=== PATIENT | male | born 1955 | race Caucasian/White ===

== ENCOUNTER 2017-12-29 08:30 | Inpatient (IN) ==
[~2017-12-29 08:30] MED LIST: Bupivacaine/Epinephrine PF Inj 0.5% 30 ML Vial ONE; Gelatin Size 100 Topical Foam ONE; Thrombin Topical Soln 5,000 UNIT Vial TOPICAL ONE; ceFAZolin 2 GM Premix Inj 2 GM/50 ML PIGGYBACK IV.SIG ONE
[2017-12-29] MEDS ORDERED: HYDROmorphone PF Inj 2 MG/ML Vial ONE ×2 (10:50→19:24)
[2017-12-29] MEDS ORDERED: fentaNYL Citrate Inj 250 MCG/5 ML Ampul ONE (10:50)
[2017-12-29] MEDS ORDERED: Artificial Tears Opth Oint 3.5 GM Tube ONE (10:50)
[2017-12-29] MEDS ORDERED: Dexmedetomidine Inj 200 MCG/2 ML Vial ONE ×2 (10:50→18:25)
[2017-12-29] MEDS ORDERED: Sodium Chlor 0.9% Inj 250 ML ONE (11:10)
[2017-12-29] MEDS ORDERED: Sugammadex Inj 200 MG/2 ML Vial IV.PUSH ONE (11:15)
[2017-12-29] MEDS ORDERED: Metoprolol Tartrate 25 MG Tablet PO ONE (11:31)
[2017-12-29] MEDS ORDERED: Chlorhexidine Gluconate 2% 1 Pack (2 Cloths) TOPICAL ONE (11:31)
[2017-12-29] MEDS ORDERED: Sodium Chlor 0.9% Inj 500 ML IV.SIG SCH (12:00)
[2017-12-29] MEDS ORDERED: Vancomycin Inj 1,000 MG in Sodium Chlor 0.9% Inj 250 ML IV.SIG SCH (12:00)
[2017-12-29] MEDS ORDERED: ASPIRIN ACETAMINOPHEN CAFFEINE PO PRN (14:14)
[2017-12-29] MEDS ORDERED: OXYCODONE 15 MG PO PRN (14:14)
[2017-12-29] MEDS ORDERED: Naloxone Inj 0.4 MG/ML Vial IV.PUSH PRN (14:15)
[2017-12-29] MEDS ORDERED: Dextrose 50% in Water 50 ML Vial IV.PUSH PRN ×3 (14:15→21:10)
[2017-12-29 15:34] LABS: ABG Base Excess 1.2 mmol/L (-2-2); ABG PCO2 35 mmHg (38-42); ABG PO2 186 mmHG (61-120)
[2017-12-29 15:35] LABS: Hematocrit 36.4 % (39.0-51.0); Hemoglobin 12.6 gm/dL (13.0-17.0)
[2017-12-29] MEDS ORDERED: ceFAZolin 2 GM Premix Inj 2 GM/50 ML PIGGYBACK IV.SIG ONE (15:57)
[2017-12-29] MEDS ORDERED: Propofol Inj 500 MG/50 ML Vial ONE (16:35)
[2017-12-29 17:24] LABS: ABG Base Excess 0.5 mmol/L (-2-2); ABG PCO2 36 mmHg (38-42); ABG PO2 194 mmHG (61-120)
[2017-12-29 17:46] LABS: Hematocrit 31.7 % (39.0-51.0); Hemoglobin 11.7 gm/dL (13.0-17.0)
--- NOTE | 2017-12-29 20:30 | P.OP ---
Preoperative Diagnosis: Lumbar degenerative disk disease with secondary spinal stenosis Postoperative Diagnosis: Lumbar degenerative disk disease with secondary spinal stenosis Date of procedure: 12/29/17 Procedure: L3-4, L4-L5, L5-S1 left decompressive laminectomy, interbody arthrodhesis using PEEK cage and autologous bone graft, L3-4, L4-L5, L5-S1 instrumental fixation using transpedicular screws and rods, L3-4, L4-L5, L5-S1 posterolateral fusion using autologous bone graft and demineralized bone matrix. Microsurgical dissection Anesthesia: ALYSSA Surgeon: Choco Hawley MD Box Sorter: Nan De Pathology: none sent Operation and Findings: INDICATIONS FOR THE SURGICAL PROCEDURE Mr Padilla is a 62 year-old male who presented with intractable mechanical back pain and papi evidence of L4, L5, and S1 lower extremity radiculopathy. He had multlevel severe degenerative disk disease with secondary spinal stenosis, which correlated with his poliradiculopathy. He has failed maximum nonsurgical management including multiple modalities of conservative treatment as well as pain management interventions by an interventional pain specialist. A surgical decompression and arthrodhesis were indicated as a last resort. The wdom-he-xzki details of the procedure, indications, alternatives, risks and potential complications were fully discussed with the patient. The patient fully understood. All the questions were answered. No guarantees were given. He voiced requesting the procedure and provided informed consents. He was offered the alternative of delaying the procedure and continuing with nonsurgical management. DETAILS OF THE SURGICAL PROCEDURE Prior to the procedure, the procedure, risks, and potential complications revisited with the patient. Placement of electrodes for intraoperative neurophysiological monitoring was completed. The patient was taken to the operative room, and following induction of general anesthesia, endotracheal intubation was performed. A Sheehan catheter, bilateral SRI hose and sequential compression devices were placed and kept throughout the procedure. The patient was positioned prone, over a Oskar table over a bolsters. All pressure in the preoperative surgical holding room points were carefully padded with eggcrate and gel mattress. The eyes were tapped shut after ointment was applied by the anesthesiologist to prevent corneal abrasion. A Ale hugger was placed over the expossed lower body to maintain control of the core body temperature. The electrophysiological team placed the needles and electrodes in their proper location and baseline SSEP's and motor evoked potentials were registered. The entrance to each pedicles was marked using a C arm. The lumbar region was prepped and draped in the usual sterile fashion. The surgical procedure was performed in several steps as follow: SURGICAL APPROACH Once the patient was positioned, a localizing cross-table lateral and AP x-ray was performed with a C-arm. Two paramedian small incisions were outlined on the skin approximately 3cm from the midline. The skin incisions were made with a # 10 blade. Small bleeders were controlled with the cautery. The dissection was then carried out into deeper planes and through the thoracolumbar fascia with a Bovie. The intermuscular septum was identified and the muscles were blunted dissected along the septum. The facets and transverse process of L3-4, L4,5, and L5-S1 were exposed and the proper anatomical landmarks were identidied. A microsurgical self-retaining retractor was placed on the incision, and a localizing lateralizing cross-table x-ray was performed with an instrument underneath a lamina of the lumbar spine. INSTRUMENTAL FIXATION At this point in the procedure, placement of bilateral transpedicular screws was necessary for stabilization of the spine. Initially, the entry point for the screw was selected anatomically at the junction of the facet, with the transverse process, and the pars interarticularis at L3-4, L4,5, and L5-S1. This was started with a Giamshetti needle, followed by the use of K wire. A tap was used to create the threads for the screws. Finally bilateral transpedicular screws were carefully placed bilaterally at L3, L4, L5. and S1 under fluoroscopic visualization. An appropriate purchase was achieved with all screws. The position of each screw was assessed anatomically with an AP, lateral , oblique Xrays. An intraoperative scan view of the spine was then performed using the iso-centric c-arm. Each screw was then assessed electrophysiologically stimulating each screw with a nerve stimulator. SURGICAL DECOMPRESSION There was significant mass effect with compression of the neural structures. In order to relieve neural compression, it was necessary to perform a decompressive laminectomy, with decompression of the spinal canal and bilateral lateral recesses. Note that the scope of such decompression was significantly more extensive than the minimal exposure necessary to perform an interbody fusion, as there was extreme facet arthropathy with severe degeneration of the disk spaces and stenosis cause by the hyperthrophic joint facets. At this point of the procedure the operative microscope was draped in the usual sterile fashion and brought to the field. The rest of the surgical procedure was performed using microdissection technique with the exception of the closure. Under the operating microscope, a decompressive laminectomy was carried out at L3-4, L4,5, and L5-S1 as follow: The laminae, base of the spinous processes and facets were carefully drilled exposing the ligamentum flavum. The facets were abnormal with severe facet arthropathy. Broad -based disk protusions were compressing the neural structures and exiting nerve roots. The ligamentum flavum appeared hypertrophic, resulting on mass effect on the dorsal surface of the neural structures. The superior free border of the ligamentum flavum was elevated with a ligament dissector and the ligamentum flavum was removed with a 3 and 4 mm Kerrison forceps. The ligament was very adherent to the dural sac and during the dissection, ans extreme care was taken during the dissection. The exiting nerve roots L4, L5, and S1 were identified, and a wide foraminotomy was performed with a Kerrison in their trajectory towards the neural foramen. Epidural veins located laterally to the dural sac were coagulated with the bipolar cautery, and then incised using microscissors. Gentle medial retraction of the dural sac allowed me to expose the disc space for the discectomy. Upon completion of the discectomy, an excellent decompression of the neural structures was achieved. INTERBODY ARTHRODHESIS In order to correct the narrowing of the disk space and maintain distraction of the space, and to achieve a solid interbody fusion, it was necessary the insertion of an interbody device into the disk space. Otherwise, the disk space would collapse, compromising the result of the surgical procedure. At this point of the procedure, the annulus fibrosus of the disk was carefully coagulated with a bipolar cautery and incised using an 11 bladed knife. Then, a microdiscectomy was carried out in a standard fashion using a combination of straight and up-biting pituitary forceps. A reverse angle curette was applied underneath the posterior longitudinal ligament, and used to push the disk fragments into the disk space, so they can be safely removed with a pituitary forceps. Once the discectomy was completed, it was necessary to decorticate the endplates, in order to eliminate the cartilaginous endplate and to expose healthy bone appropriate to perform the interbody fusion. The endplates at L3-4 , L4,5 were then thoroughly decorticated using increasing size bone giovanni and ring curets, eliminating the cartilaginous fragments from both, the superior and inferior endplates. A disk space distractor was applied to the pedicle screws and gentle distraction was applied. This maneuver was assisted by the use of a disk distractor. Increased motility was noted at the disk, which was consistent with instability due to facet arthropathy. Once a thorough preparation of the disk space was achieved, the disk space was irrigated with antibiotic solution, and the interbody fusion was performed by carefully impacting PPEK cages filled with autologous iliac crest bone graft. The use of several shoe impactors with different angulation, allowed me for an excellent, proper position of the interbody cages L3-4 and L4,5. A solid position of the cage with good purchase was achieved. The position of the cages were assessed anatomically with a probe and radiologically with the C-arm. POSTEROLATERAL FUSION The posterolateral fusion is a critical component to the procedure, to prevent future fatigue and failure of the instrumental fixation. Initially, the transverse processes of the vertebral bodies, lateral surface of the facets and the lateral gutters of the spine were carefully cleaned, eliminating all soft tissue and muscle attachments. The area was then irrigated with a large amount of antibiotic solution. Subsequently, the transverse processes, lateral surface of the facets, and lateral gutters of the spine were thoroughly decorticated using the TPS drill with a 5mm cutting selvin, exposing cancellous bone, in preparation for the posterolateral fusion. The incision was again irrigated with antibiotic solution. Then, the posterolateral fusion was then performed by carefully packing the lateral gutters of the spine at L3-4, L4-5, and L5-S1 with autologous bone combined with demineralized bone matrix. COMPLETION OF THE INSTRUMENTATION AND CLOSURE The rods were brought to the field, applied to all the screws, and the screw caps were sequentially applied. Compression was performed between the pedicle screws, and final tightening of the screws was completed using a torque wrench. The incision was again thoroughly irrigated with several liters of antibiotic solution, and hemostasis secured with the bipolar cautery. A Valsalva Maneuver performed by the anesthesiologist failed to show any evidence of cerebrospinal fluid leak or bleeding. A 7 mm Oskar-Mendoza drain was left in the epidural space and externalized through a separate stab incision. The incision was then closed in planes. 0 Vicryl was used in an interrupted fashion to close the thoracolumbar fascia and the superficial fascia. The subcutaneous tissue was then approximated using 3-0 Vicryl in an interrupted fashion. Special care was taken to avoid space. The skin was then closed with 4-0 Vicryl in a running, subcuticular fashion. Dermabond was applied to the skin. Each plane of closure was irrigated with antibiotic solution. At the end of the procedure the sponge, needle and instrument counts were all correct. Estimated blood loss was 600 cc. No blood transfusion was given. The entire procedure was performed using continuous electrophysiological monitoring of the somatosensorial evoked potentials and EMG. The patient received prophylactic antibiotics. The patient was then extubated and transferred to the recovery room in stable condition.
--- NOTE | 2017-12-29 20:44 | XR ---
EXAM DATE: 12/29/2017 8:37 PM EDT AGE/SEX: 62 years / Male INDICATIONS: L3-S1 fusion. CLINICAL DATA: This is the patient's initial encounter. Patient reports that signs and symptoms have been present for 1 day and indicates a pain score of Nonresponsive. MEDICAL/SURGICAL HISTORY: Non-responsive. Non-responsive. COMPARISON: PCI, XR SPINE LUMBAR AP AND LAT W/ FLEX AND EXT, 12/10/2017. . FINDINGS: The vertebral bodies are in normal alignment postoperative transpedicular screw and temo fixation acro ss L3-4-5-S1. Normal alignment. Disc spacers present. CONCLUSION: Postoperative fusion as above. Electronically signed by: Destin Luque MD 12/29/2017 8:43 PM EDT
[2017-12-29] MEDS ORDERED: *HYDROmorphone PF Inj 1 MG/ML Ampul PERIprocedural Use ONLY ONE ×2 (20:51→20:57)
[2017-12-29] MEDS ORDERED: fentaNYL Citrate Inj 100 MCG/2 ML Ampul ONE (21:05)
--- NOTE | 2017-12-29 21:06 | P.CONCC ---
History of Present Illness Service: Critical care Consult date: 12/29/17 Requesting Physician: Choco Hawley Reason for Consult: S/p lumbar laminectomy and fusion, hypotension Primary Care Provider: Tung Stahl MD History of Present Illness: Mr Padilla is a 62 year-old male who presented with intractable mechanical back pain and papi evidence of L4, L5, and S1 lower extremity radiculopathy. He had multlevel severe degenerative disk disease with secondary spinal stenosis, which correlated with his poliradiculopathy. He has failed maximum nonsurgical management including multiple modalities of conservative treatment as well as pain management interventions by an interventional pain specialist. A surgical decompression and arthrodhesis were indicated as a last resort. L3-4, L4-L5, L5-S1 left decompressive laminectomy, interbody arthrodhesis using PEEK cage and autologous bone graft, L3-4, L4-L5, L5-S1 instrumental fixation using transpedicular screws and rods, L3-4, L4-L5, L5-S1 posterolateral fusion using autologous bone graft and demineralized bone matrix. Microsurgical dissection PMFSH - History History Provided By: Patient - Medical History Medical History: Medical History (Last Reviewed 12/29/17 @ 10:19 by Mansi Pablo) Arthritis Cervical vertebral fusion Chronic neck and back pain DDD (degenerative disc disease) Diabetes Fibromyalgia High cholesterol Hypertension Neuropathy Nightmares Rheumatoid arthritis Risk for falls Tendon injury Umbilical hernia Use of cane as ambulatory aid Wears glasses - Surgical History Surgical History: Surgical History (Last Reviewed 12/29/17 @ 10:19 by Mansi Pablo) History of carpal tunnel release of both wrists History of hydrocelectomy History of total bilateral knee replacement (TKR) Hx of LASIK Hx of repair of left rotator cuff Hx of right inguinal hernia repair - Tobacco History Second Hand Smoke Exposure: No Smoking Status: Never smoker - Alcohol History How Often Do You Have a Drink Containing Alcohol: Monthly or less - Substance Use History Substance History: No History of Abuse - Travel History Recent Travel in the [place] Within the Last 8 Weeks: Yes Recent Travel Out of the Country Within the Last 8 Weeks: No Medications and Allergies Active Medications: Active Medications Hydrocodone Bitart/Acetaminophen ([place] 10/325) 2 tab PO Q4H PRN PRN Reason: PAIN SCALE 6 TO 10 Al Hydroxide/Mg Hydroxide (Milk Of Magnesia Liq) 30 ml PO Q12H PRN PRN Reason: Mild Constipation Bisacodyl (Dulcolax Supp) 10 mg RECTAL DAILY PRN PRN Reason: SEVERE CONSITIPATION Chlorhexidine Gluconate (Chlorhexidine 2% Cloth) 1 pack TOPICAL DAILY [facility] Stop: 01/03/18 08:59 Dextrose (D50w Vial) 50 ml IV.PUSH UNSCH PRN PRN Reason: PER HYPOGLYCEMIA PROTOCOL Duloxetine HCl (Cymbalta) 120 mg PO DAILY [facility] Folic Acid (Folic Acid) 1 mg PO DAILY [facility] Gabapentin (Neurontin) 400 mg PO TID [facility] Glucagon (Glucagon Inj) 1 mg OTHER PRN PRN PRN Reason: for Hypoglycemia Protocol Hydrochlorothiazide (Hydrodiuril) 25 mg PO DAILY [facility] Lactated Ringer's (Lr 1000 Ml Inj) 1,000 mls @ 30 mls/hr IV.SIG .Q24H [facility] Stop: 12/30/17 11:44 Sodium Chloride (Ns Inj) 500 mls @ 30 mls/hr IV.SIG .Q10H [facility] Vancomycin HCl 1,000 mg/ (Sodium Chloride) 250 mls @ 30 mls/hr IV.SIG 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 [facility] Stop: 12/29/17 23:59 Last Admin: 12/29/17 11:15 Dose: 30 mls/hr Sodium Chloride (Ns Inj) 1,000 mls @ 30 mls/hr IV.SIG .Q24H [facility] Cefazolin Sodium/Dextrose (Ancef 2 Gm Premix Inj) 2 gm in 50 mls @ 100 mls/hr IV.SIG Q8H [facility] Stop: 12/30/17 16:29 Sodium Chloride (Ns Inj) 1,000 mls @ 100 mls/hr IV.CONT .Q10H [facility] Hydromorphone/Sodium Chloride (Dilaudid Integration Developer Inj) 6 mg in 30 mls @ 0 mls/hr STEEL DIE ENGRAVER UNSCH PRN PRN Reason: per STEEL DIE ENGRAVER parameters Insulin Aspart (Novolog Insulin Correctional Sugar Inj) 0 unit SQ Q6HR [facility]; Protocol Lactulose (Lactulose Liq) 30 ml PO DAILY PRN PRN Reason: SEVERE CONSITIPATION Lisinopril (Prinivil) 20 mg PO DAILY [facility] Metformin HCl (Glucophage) 500 mg PO BID [facility] Methotrexate (Rheumatrex) 15 mg PO Mo [facility] Morphine Sulfate (Morphine Inj) 2 mg IV.PUSH Q2H PRN PRN Reason: Pain Scale 1 to 6 Naloxone HCl (Narcan Inj) 0.4 mg IV.PUSH PRN PRN PRN Reason: SEE LABEL COMMENTS Niacin (Slo-Niacin) 500 mg PO DAILY [facility] Prazosin HCl (Minipress) 2 mg PO HS [facility] Senna/Docusate Sodium (Do-Colace) 1 tab PO BID [facility] Sennosides (Senokot) 17.2 mg PO Q12H PRN PRN Reason: Moderate Constipation Allergies Allergy/AdvReac Type Severity Reaction Status Date / Time No Known Allergies Allergy Unverified 12/29/17 10:20 Home Medications Medication Instructions Recorded Confirmed Type [id number] 2 tab PO Q4-6H PRN 12/24/17 12/29/17 History [Excedrin Extra Strength] diclofenac sodium 2 g TOPICAL QID PRN 12/24/17 12/29/17 History duloxetine 120 mg PO DAILY 12/24/17 12/29/17 History fish,bora,flax oils-om3,6,9no1 1 cap PO DAILY 12/24/17 12/29/17 History [Triple [place] 3-6-9] folic acid 1 mg PO DAILY 12/24/17 12/29/17 History gabapentin 400 mg PO TID 12/24/17 12/29/17 History inulin-sorbitol [Fiber Supplement 1 tab PO DAILY 12/24/17 12/29/17 History (inulin)] lisinopril-hydrochlorothiazide 1 tab PO DAILY 12/24/17 12/29/17 History meloxicam 7.5 mg PO DAILY 12/24/17 12/29/17 History metformin 500 mg PO BID 12/24/17 12/29/17 History methotrexate sodium 6 tab PO DAILY 12/24/17 12/29/17 History niacin 500 mg PO DAILY 12/24/17 12/29/17 History oxycodone 15 mg PO Q8HR PRN 12/24/17 12/29/17 History potassium 99 mg PO DAILY 12/24/17 12/29/17 History prazosin 2 mg PO HS 12/24/17 12/29/17 History testosterone 40 mg TRANSDERMAL QAM 12/24/17 12/29/17 History trazodone 300 mg PO DAILY 12/24/17 12/29/17 History vitamin B comp and C no.3 [B 1 cap PO DAILY 12/24/17 12/29/17 History Complex Plus Vitamin C] vitamin E 400 unit PO DAILY 12/24/17 12/29/17 History Physical Exam Vital signs: Vital Signs 12/29/17 10:42 Temperature 97.9 F Pulse Rate 82 Respiratory Rate 20 Blood Pressure 113/82 Pulse Oximetry 99 Intake & Output 12/29/17 12/29/17 12/30/17 06:59 18:59 06:59 Intake Total 50 / 50 3500 / 3500 Output Total 1800 / 1800 Balance 50 / 50 1700 / 1700 Weight 112.1 kg Intake: IV 50 / 50 Ancef 2 GM Premix Inj 2 gm In 50 / 50 50 ml @ 0 mls/hr IV.SIG .STK- [facility] Rx#:[id number] Anesthesia Amount 3500 / 3500 Output: Estimated Blood Loss 600 / 600 Urine Amount (Catheter) 1200 / 1200 Indwelling Urethral Catheter 1200 / 1200 Other: Weight On Admission 112.1 kg - Urinary Catheter Management Indwelling Urethral Catheter Cath placed during this visit: yes Reason for continuing: Hourly intake/output Insertion date: 12/29/17 Insertion time: 11:50
--- NOTE | 2017-12-29 21:15 | P.CONCC ---
History of Present Illness Service: Critical care Consult date: 12/29/17 Requesting Physician: Choco Hawley Reason for Consult: s/p lumbar laminectomy and fusion, postop hypotension Primary Care Provider: Tung Stahl MD Chief Complaint: Status post lumbar laminectomy and fusion History of Present Illness: Mr Padilla is a 62 year-old male with history of hypertension, diabetes, dyslipidemia, rheumatoid arthritis, history of previous cervical fusion by Dr. Smalls. He was being followed by Dr. Hawley for intractable back pain and L4, L5, and S1 lower extremity radiculopathy. He has multlevel severe degenerative disk disease with secondary spinal stenosis, and has failed maximum nonsurgical management. Patient today underwent lumbar decompressive laminectomy and 3 level fusion (L3-4, L4-L5, L5-S1 left decompressive laminectomy, interbody arthrodhesis using PEEK cage and autologous bone graft, L3-4, L4-L5, L5-S1 instrumental fixation using transpedicular screws and rods, L3-4, L4-L5, L5-S1 posterolateral fusion using autologous bone graft and demineralized bone matrix. Microsurgical dissection). Surgery was prolonged approximately 7 hours patient had 600 mL EBL, received 3500 crystalloid urine output was 1.2 L. Postop patient was extubated and moved to the PACU. Critical care medicine was consulted for postop management and hypotension I evaluated the patient in the PACU. Patient had just received Dilaudid for pain. He is lying on his side his systolic blood pressure is in 90s. Currently receiving 1 L normal saline bolus. His hemoglobin came back at 10.7 which is a 2 g drop from preop hemoglobin. Because of hypotension and anemia I will transfuse 1 unit of PRBC. Hold all home antihypertensives. If needed will use Urban-Synephrine to keep map above 65, patient has currently received total of 4.5 L of crystalloids, hold off additional fluid resuscitation due to risk of facial swelling airway edema, due to prolonged prone time Review of Systems All other systems reviewed negative except as stated in HPI PMFSH - History History Provided By: Patient - Medical History Medical History: Medical History (Last Reviewed 12/29/17 @ 21:28 by Onofre Jain MD) Arthritis Cervical vertebral fusion Chronic neck and back pain DDD (degenerative disc disease) Diabetes Fibromyalgia High cholesterol Hypertension Neuropathy Nightmares Rheumatoid arthritis Risk for falls Tendon injury Umbilical hernia Use of cane as ambulatory aid Wears glasses - Surgical History Surgical History: Surgical History (Last Reviewed 12/29/17 @ 21:28 by Onofre Jain MD) History of carpal tunnel release of both wrists History of hydrocelectomy History of total bilateral knee replacement (TKR) Hx of LASIK Hx of repair of left rotator cuff Hx of right inguinal hernia repair - Tobacco History Second Hand Smoke Exposure: No Smoking Status: Never smoker - Alcohol History How Often Do You Have a Drink Containing Alcohol: Monthly or less - Substance Use History Substance History: No History of Abuse - Travel History Recent Travel in the [place] Within the Last 8 Weeks: Yes Recent Travel Out of the Country Within the Last 8 Weeks: No Medications and Allergies Active Medications: Active Medications Hydrocodone Bitart/Acetaminophen ([place] 10/325) 2 tab PO Q4H PRN PRN Reason: PAIN SCALE 6 TO 10 Al Hydroxide/Mg Hydroxide (Milk Of Magnesia Liq) 30 ml PO Q12H PRN PRN Reason: Mild Constipation Bisacodyl (Dulcolax Supp) 10 mg RECTAL DAILY PRN PRN Reason: SEVERE CONSITIPATION Chlorhexidine Gluconate (Chlorhexidine 2% Cloth) 1 pack TOPICAL DAILY [facility] Stop: 01/03/18 08:59 Dextrose (D50w Vial) 50 ml IV.PUSH UNSCH PRN PRN Reason: PER HYPOGLYCEMIA PROTOCOL Dextrose (D50w Vial) 50 ml IV.PUSH UNSCH PRN PRN Reason: PER HYPOGLYCEMIA PROTOCOL Duloxetine HCl (Cymbalta) 120 mg PO DAILY [facility] Folic Acid (Folic Acid) 1 mg PO DAILY [facility] Gabapentin (Neurontin) 400 mg PO TID [facility] Glucagon (Glucagon Inj) 1 mg OTHER PRN PRN PRN Reason: for Hypoglycemia Protocol Glucagon (Glucagon Inj) 1 mg OTHER PRN PRN PRN Reason: for Hypoglycemia Protocol Hydrochlorothiazide (Hydrodiuril) 25 mg PO DAILY [facility] Lactated Ringer's (Lr 1000 Ml Inj) 1,000 mls @ 75 mls/hr IV.SIG .[id number] [facility] Stop: 12/29/17 21:20 Sodium Chloride (Ns Inj) 500 mls @ 30 mls/hr IV.SIG .Q10H [facility] Vancomycin HCl 1,000 mg/ (Sodium Chloride) 250 mls @ 30 mls/hr IV.SIG WEIGHT REDUCTION SPECIALIST [facility] Stop: 12/29/17 23:59 Last Admin: 12/29/17 11:15 Dose: 30 mls/hr Sodium Chloride (Ns Inj) 1,000 mls @ 30 mls/hr IV.SIG .Q24H [facility] Cefazolin Sodium/Dextrose (Ancef 2 Gm Premix Inj) 2 gm in 50 mls @ 100 mls/hr IV.SIG Q8H [facility] Stop: 12/30/17 16:29 Sodium Chloride (Ns Inj) 1,000 mls @ 100 mls/hr IV.CONT .Q10H [facility] Hydromorphone/Sodium Chloride (Dilaudid Wood Boat Builder Supervisor Inj) 6 mg in 30 mls @ 0 mls/hr SAFETY SEALER UNSCH PRN PRN Reason: per SAFETY SEALER parameters Insulin Aspart (Novolog Insulin Correctional Sugar Inj) 0 unit SQ Q6HR [facility]; Protocol Lactulose (Lactulose Liq) 30 ml PO DAILY PRN PRN Reason: SEVERE CONSITIPATION Lisinopril (Prinivil) 20 mg PO DAILY [facility] Metformin HCl (Glucophage) 500 mg PO BID [facility] Methotrexate (Rheumatrex) 15 mg PO Mo [facility] Morphine Sulfate (Morphine Inj) 2 mg IV.PUSH Q2H PRN PRN Reason: Pain Scale 1 to 6 Naloxone HCl (Narcan Inj) 0.4 mg IV.PUSH PRN PRN PRN Reason: SEE LABEL COMMENTS Niacin (Slo-Niacin) 500 mg PO DAILY [facility] Prazosin HCl (Minipress) 2 mg PO HS [facility] Senna/Docusate Sodium (Do-Colace) 1 tab PO BID [facility] Sennosides (Senokot) 17.2 mg PO Q12H PRN PRN Reason: Moderate Constipation Trazodone HCl (Desyrel) 300 mg PO DAILY [facility] Allergies Allergy/AdvReac Type Severity Reaction Status Date / Time No Known Allergies Allergy Unverified 12/29/17 10:20 Home Medications Medication Instructions Recorded Confirmed Type [id number] 2 tab PO Q4-6H PRN 12/24/17 12/29/17 History [Excedrin Extra Strength] diclofenac sodium 2 g TOPICAL QID PRN 12/24/17 12/29/17 History duloxetine 120 mg PO DAILY 12/24/17 12/29/17 History fish,bora,flax oils-om3,6,9no1 1 cap PO DAILY 12/24/17 12/29/17 History [Triple [place] 3-6-9] folic acid 1 mg PO DAILY 12/24/17 12/29/17 History gabapentin 400 mg PO TID 12/24/17 12/29/17 History inulin-sorbitol [Fiber Supplement 1 tab PO DAILY 12/24/17 12/29/17 History (inulin)] lisinopril-hydrochlorothiazide 1 tab PO DAILY 12/24/17 12/29/17 History meloxicam 7.5 mg PO DAILY 12/24/17 12/29/17 History metformin 500 mg PO BID 12/24/17 12/29/17 History methotrexate sodium 6 tab PO DAILY 12/24/17 12/29/17 History niacin 500 mg PO DAILY 12/24/17 12/29/17 History oxycodone 15 mg PO Q8HR PRN 12/24/17 12/29/17 History potassium 99 mg PO DAILY 12/24/17 12/29/17 History prazosin 2 mg PO HS 12/24/17 12/29/17 History testosterone 40 mg TRANSDERMAL QAM 12/24/17 12/29/17 History trazodone 300 mg PO DAILY 12/24/17 12/29/17 History vitamin B comp and C no.3 [B 1 cap PO DAILY 12/24/17 12/29/17 History Complex Plus Vitamin C] vitamin E 400 unit PO DAILY 12/24/17 12/29/17 History Physical Exam Vital signs: Vital Signs 12/29/17 10:42 Temperature 97.9 F Pulse Rate 82 Respiratory Rate 20 Blood Pressure 113/82 Pulse Oximetry 99 Intake & Output 12/29/17 12/29/17 12/30/17 06:59 18:59 06:59 Intake Total 50 / 50 3500 / 3500 Output Total 1800 / 1800 Balance 50 / 50 1700 / 1700 Weight 112.1 kg Intake: IV 50 / 50 Ancef 2 GM Premix Inj 2 gm In 50 / 50 50 ml @ 0 mls/hr IV.SIG .STK- [facility] Rx#:[id number] Anesthesia Amount 3500 / 3500 Output: Estimated Blood Loss 600 / 600 Urine Amount (Catheter) 1200 / 1200 Indwelling Urethral Catheter 1200 / 1200 Other: Weight On Admission 112.1 kg Narrative: GEN: 62-year-old male who is lying in PACU bed lying on his right side. Moderate distress due to pain HEENT: Extraocular movements are grossly. Pupils are reactive. Oral cavity is dry. No significant facial swelling NECK: Supple. LUNGS: Bilateral coarse breath sounds, few crackles heard. HEART: S1 and S2 normal, no murmur. Hypotensive ABDOMEN: Soft. Nontender EXTREMITIES: No pedal edema. BACK: Lumbar incision dressing C/D/I, single KOKO drain with approximately 50 mL sanguinous output NEUROLOGIC: Limited exam. Patient is somnolent from receiving Dilaudid. Wakes up easily follows commands no focal deficits - Urinary Catheter Management Indwelling Urethral Catheter Cath placed during this visit: yes Reason for continuing: Hourly intake/output Insertion date: 12/29/17 Insertion time: 11:50 Septic Shock Reassessment Septic shock perfusion: reassessment completed Assessment and Plan - Assessment and Plan Plan: ASSESSMENT: Status post lumbar decompressive laminectomy and fusion for symptomatic spinal stenosis Hypotension Postop anemia Prolonged prone time approximately 7 hours History of hypertension Type 2 diabetes Dyslipidemia Rheumatoid arthritis PLAN: NEURO: -Postop management per Dr. Hawley, no evidence of significant postop bleeding -EBL 600 mL during surgery -Pain controlled with SAFETY SEALER pump, PO hydrocodone -PT once cleared by Dr. Hawley RESP: -DuoNeb every 2 hours as needed -Aggressive pulmonary toilet -Watch closely for airway edema due to prolonged prone time approximately 7 hours CV: -Normal saline IV fluids 1L bolus and 100 ml per hour -Received 3.5 L of crystalloids in the OR -Urban-Synephrine if needed to keep map above 65 -Hold all home antihypertensives including lisinopril hydrochlorothiazide GI: -Diabetic diet, IV famotidine -Bowel regimen : -Monitor renal function closely. Maintain Sheehan catheter for hourly intake output ID: -Perioperative antibiotics per Dr. Hawley HEME: -Monitor CBC, coags -Transfuse 1 unit PRBC due to hypotension and hemoglobin drop in 2 g MSK: -On methotrexate for rheumatoid arthritis -Med rec does not show that patient is on chronic steroids -No indication for stress steroids at this time but will start if persistently hypotensive ENDO: -Electrolyte replacement per protocol -Sliding scale insulin PROPH: -Bilateral lower extremity SCDs. famotidine -Avoid chemical DVT prophylaxis due to surgery LINES: -Utilize peripheral IVs, central line if needed, maintain arterial line for 24 hours or until stable CC time 35 min Code Status: Full Discussed Condition With: Dr. Hawley
[2017-12-29 21:17] LABS: Hematocrit 30.8 % (39.0-51.0); Hemoglobin 10.7 gm/dL (13.0-17.0); Mean Corpuscular HGB Conc 34.7 % (32.0-36.0); Mean Corpuscular Hemoglobin 31.4 pg (27.0-34.0); Mean Corpuscular Volume 90.6 fL (80.0-100.0); Mean Platelet Volume 7.1 fL (7.0-11.0); Platelet Count 285 th/mm3 (150-450); Red Blood Count 3.39 mil/mm3 (4.50-5.90); Red Cell Distribution Width 14.2 % (11.6-17.2); White Blood Count 12.3 th/mm3 (4.0-11.0)
[2017-12-29] MEDS ORDERED: Phenylephrine Inj 40 MG in Sodium Chlor 0.9% Inj 496 ML IV.CONT PRN (21:26)
[2017-12-29 21:43] LABS: Calcium 7.4 mg/dL (8.5-10.1); Carbon Dioxide 25.6 meq/L (21.0-32.0); Potassium 4.3 meq/L (3.5-5.1)
[2017-12-29] MEDS: HYDROmorphone PCA Inj 6 MG/30 ML PCA.VIAL PCA PRN (21:50)
[2017-12-29 22:25] LABS: Total Protein 5.6 g/dL (6.4-8.2)
[2017-12-30] MEDS: Sod Chloride 0.9% Inj 1,000 ML IV.SIG SCH ×2 (00:28→13:02)
[2017-12-30] MEDS: Sod Chloride 0.9% Inj 1,000 ML IV.CONT SCH ×4 (00:29→21:21)
[2017-12-30] MEDS: Gabapentin 400 MG Capsule PO SCH ×4 (00:30→17:08)
[2017-12-30] MEDS: Insulin NovoLOG Aspart Correctional Sugar Inj SQ SCH ×6 (00:34→23:43)
[2017-12-30] MEDS: Senna/Docusate Sodium 8.6/50 MG Tablet PO SCH ×3 (00:35→21:22)
[2017-12-30] MEDS: ceFAZolin 2 GM Premix Inj 2 GM/50 ML PIGGYBACK IV.SIG SCH ×3 (00:44→17:11)
[2017-12-30] MEDS: HYDROmorphone PCA Inj 6 MG/30 ML PCA.VIAL PCA PRN ×4 (02:47→23:17)
[2017-12-30 07:38] LABS: Hematocrit 27.7 % (39.0-51.0); Hemoglobin 9.7 gm/dL (13.0-17.0); Lymph % (Auto) 9.1 % (9.0-44.0); Mean Corpuscular HGB Conc 35.2 % (32.0-36.0); Mean Corpuscular Hemoglobin 31.9 pg (27.0-34.0); Mean Corpuscular Volume 90.6 fL (80.0-100.0); Mono # (Auto) 0.9 th/mm3 (0.0-0.9); Mono % (Auto) 8.1 % (0.0-8.0); Neut # (Auto) 8.8 th/mm3 (1.8-7.7); Neut % (Auto) 82.8 % (16.0-70.0); Platelet Count 234 th/mm3 (150-450); Red Blood Count 3.06 mil/mm3 (4.50-5.90); Red Cell Distribution Width 14.7 % (11.6-17.2); White Blood Count 10.7 th/mm3 (4.0-11.0)
[2017-12-30 08:15] LABS: Calcium 7.2 mg/dL (8.5-10.1); Carbon Dioxide 29.2 meq/L (21.0-32.0); Magnesium 1.8 mg/dL (1.5-2.5); Potassium 4.3 meq/L (3.5-5.1)
[2017-12-30] MEDS: Duloxetine 60 MG DR Capsule PO SCH (08:38)
[2017-12-30] MEDS: Famotidine PF Inj 20 MG/2 ML Vial IV.PUSH SCH ×2 (08:40→21:24)
[2017-12-30] MEDS: Folic Acid 1 MG Tablet PO SCH (08:40)
[2017-12-30 08:52] LABS: Total Protein 5.6 g/dL (6.4-8.2)
[2017-12-30] MEDS ORDERED: Lisinopril 20 MG Tablet PO SCH (09:00)
[2017-12-30] MEDS ORDERED: SORBITOL PO SCH (09:00)
[2017-12-30] MEDS ORDERED: [UNRECOGNIZED DRUG - REMARK] PO SCH (09:00)
[2017-12-30] MEDS ORDERED: hydroCHLOROthiazide 25 MG Tablet PO SCH (09:00)
[2017-12-30] MEDS ORDERED: INULIN PO SCH (09:00)
[2017-12-30] MEDS ORDERED: traZODone 100 MG Tablet PO SCH (09:00)
[2017-12-30] MEDS ORDERED: Non-Formulary Drug (Lisinopril-Hydrochlorothiazide [Lisinopril-Hydrochlorothiazide] 1 TAB) PO SCH (09:00)
[2017-12-30] MEDS: Chlorhexidine Gluconate 2% 1 Pack (2 Cloths) TOPICAL SCH (09:31)
--- NOTE | 2017-12-30 10:00 | P.PNCC ---
Subjective Subjective Remarks/Hospital Course: Mr Padilla is a 62 year-old male with history of hypertension, diabetes, dyslipidemia, rheumatoid arthritis, history of previous cervical fusion by Dr. Smalls. He was being followed by Dr. Hawley for intractable back pain and L4, L5, and S1 lower extremity radiculopathy. He has multlevel severe degenerative disk disease with secondary spinal stenosis, and has failed maximum nonsurgical management. Patient today underwent lumbar decompressive laminectomy and 3 level fusion (L3-4, L4-L5, L5-S1 left decompressive laminectomy, interbody arthrodhesis using PEEK cage and autologous bone graft, L3-4, L4-L5, L5-S1 instrumental fixation using transpedicular screws and rods, L3-4, L4-L5, L5-S1 posterolateral fusion using autologous bone graft and demineralized bone matrix. Microsurgical dissection). Surgery was prolonged approximately 7 hours patient had 600 mL EBL, received 3500 crystalloid urine output was 1.2 L. Postop patient was extubated and moved to the PACU. Critical care medicine was consulted for postop management and hypotension. Evaluated the patient in the PACU. Patient had just received Dilaudid for pain. He is lying on his side his systolic blood pressure is in 90s. Currently receiving 1 L normal saline bolus. His hemoglobin came back at 10.7 which is a 2 g drop from preop hemoglobin. Because of hypotension and anemia I will transfuse 1 unit of PRBC. Hold all home antihypertensives. If needed will use Urban-Synephrine to keep map above 65, patient has currently received total of 4.5 L of crystalloids, hold off additional fluid resuscitation due to risk of facial swelling airway edema, due to prolonged prone time. 12/30: Well hydrated, creatinine improved. Hemoglobin stable at 9.7. Glucose control acceptable. Patient has chronic pain problems but he appears comfortable on ARMATURE WINDER REPAIR. Objective Vital Signs / I&O: Vital Signs 12/29/17 10:42 12/29/17 20:14 12/29/17 20:15 Temperature 97.9 F 99.6 F 99.6 F Pulse Rate 82 92 H 93 H Respiratory Rate 20 14 14 Blood Pressure 113/82 131/75 118/66 Pulse Oximetry 99 98 99 12/29/17 20:30 12/29/17 20:45 12/29/17 21:00 Temperature 99.6 F 99.6 F Pulse Rate 101 H 101 H 92 H Respiratory Rate 14 14 14 Blood Pressure 108/66 88/58 L 80/61 L Pulse Oximetry 95 91 L 91 L 12/29/17 21:15 12/29/17 21:30 12/29/17 21:44 Temperature Pulse Rate 97 H 108 H 107 H Respiratory Rate 14 14 20 Blood Pressure 92/43 L 80/50 L 92/43 L Pulse Oximetry 91 L 96 98 12/29/17 22:00 12/30/17 00:18 12/30/17 02:00 Temperature 97.7 F 97.7 F 97.9 F Pulse Rate 106 H 68 96 H Respiratory Rate 14 14 21 Blood Pressure 120/66 104/59 L 106/57 L Pulse Oximetry 96 94 L 99 12/30/17 03:00 12/30/17 03:15 12/30/17 03:17 Temperature Pulse Rate 86 Respiratory Rate 12 18 18 Blood Pressure 95/53 L Pulse Oximetry 99 12/30/17 03:40 12/30/17 04:00 12/30/17 05:00 Temperature 97.9 F Pulse Rate 88 86 Respiratory Rate 22 14 Blood Pressure 96/54 L 107/68 Pulse Oximetry 100 96 95 12/30/17 06:00 12/30/17 09:31 Temperature Pulse Rate 90 Respiratory Rate 22 16 Blood Pressure 105/56 L Pulse Oximetry 100 Intake & Output 12/29/17 12/30/17 12/30/17 18:59 06:59 18:59 Intake Total 50 / 50 6170 / 6170 300 / 300 Output Total 2915 / 2915 Balance 50 / 50 3255 / 3255 300 / 300 Weight 112.1 kg 110 kg Intake: IV 50 / 50 1050 / 1050 300 / 300 NS Inj 1,000 ML @ 100 mls/hr IV 1000 / 1000 .CONT .Q10H [facility] Rx#:[id number] Vancomycin Inj 1,000 MG In NS 250 / 250 Inj 250 ML @ 30 mls/hr IV.SIG ROTARY ROCK DRILLING MACHINE OPERATOR [facility] Rx#:[id number] Ancef 2 GM Premix Inj 2 gm In 50 / 50 50 / 50 50 ml @ 100 mls/hr IV.SIG Q8H [facility] Rx#:[id number] Oral 970 / 970 Anesthesia Amount 3500 / 3500 Other 250 / 250 Rbc As-3 Leukoreduced Unit 250 / 250 [id number] Intake (Blood Product) Amt 400 / 400 Rbc As-3 Leukoreduced Unit 400 / 400 [id number] Output: Estimated Blood Loss 600 / 600 Urine Amount (Catheter) 2134 Indwelling Urethral Catheter 2134 Wound Drainage 180 / 180 Back 100 / 100 Lower Back 80 / 80 Other: Other Intake Source Rbc As-3 Leukoreduced Unit Saline Solution [id number] Date of Last Bowel Movement 12/28/17 Weight On Admission 112.1 kg Result Diagrams: 12/30/17 06:54 12/30/17 06:54 Objective Remarks: Narrative: GEN: 62-year-old male who is lying comfortably in bed. HEENT: Extraocular movements are grossly intact. Pupils are reactive. Oral cavity is dry. No significant facial swelling NECK: Supple. Airway widely patent, no obstructive noises. LUNGS: Clear, comfortable respiratory pattern. HEART: S1 and S2 normal, no murmur. No JVD ABDOMEN: Soft. Nontender, no guarding, bowel sounds are active. EXTREMITIES: No pedal edema. Warm, well-perfused. BACK: Lumbar incision dressing C/D/I, single KOKO drain with sanguinous output NEUROLOGIC: Alert, awake, wiggles toes to command. Oriented x3, good memory, talkative. Assessment and Plan - Assessment and Plan Plan: ASSESSMENT: Status post lumbar decompressive laminectomy and fusion for symptomatic spinal stenosis Hypotension Postop anemia Prolonged prone time approximately 7 hours History of hypertension Type 2 diabetes Dyslipidemia Rheumatoid arthritis PLAN: NEURO: -Postop management per Dr. Hawley, no evidence of significant postop bleeding -EBL 600 mL during surgery -Pain controlled with ARMATURE WINDER REPAIR pump, PO hydrocodone -PT once cleared by Dr. Hawley RESP: -DuoNeb every 2 hours as needed -Aggressive pulmonary toilet CV: -Normal saline IV fluids 1L bolus and 100 ml per hour -Received 3.5 L of crystalloids in the OR -Urban-Synephrine if needed to keep map above 65 -Hold all home antihypertensives including lisinopril hydrochlorothiazide GI: -Diabetic diet, IV famotidine -Bowel regimen : -Monitor renal function closely. Maintain Sheehan catheter for hourly intake output ID: -Perioperative antibiotics per Dr. Hawley HEME: -Monitor CBC, coags -Transfuse 1 unit PRBC due to hypotension and hemoglobin drop in 2 g MSK: -On methotrexate for rheumatoid arthritis -Med rec does not show that patient is on chronic steroids -No indication for stress steroids at this time but will start if persistently hypotensive ENDO: -Electrolyte replacement per protocol -Sliding scale insulin PROPH: -Bilateral lower extremity SCDs. famotidine -Avoid chemical DVT prophylaxis due to surgery LINES: -Utilize peripheral IVs, central line if needed, maintain arterial line for 24 hours or until stable Overall impression: Stable hemodynamics and respiratory function status post lumbar laminectomy. Patient has chronic pain problems and does complain but he appears comfortable in the bed on the ARMATURE WINDER REPAIR pump at present doses.
[2017-12-30] MEDS: Bisacodyl 10 MG Supp RECTAL PRN (10:05)
[2017-12-30] MEDS ORDERED: Calcium Gluconate Inj 2 GM in Sodium Chlor 0.9% Inj 100 ML IV.SIG ONE (11:15)
--- NOTE | 2017-12-30 13:41 | P.PNNS ---
Subjective Interval history: moderate at times increased incisional pain, radicular lower extremity pain. currently comfortable on SINGLE POINTED OPERATOR. Physical Exam Vital signs: Vital Signs 12/29/17 20:14 12/29/17 20:15 12/29/17 20:30 Temperature 99.6 F 99.6 F 99.6 F Pulse Rate 92 H 93 H 101 H Respiratory Rate 14 14 14 Blood Pressure 131/75 118/66 108/66 Pulse Oximetry 98 99 95 12/29/17 20:45 12/29/17 21:00 12/29/17 21:15 Temperature 99.6 F Pulse Rate 101 H 92 H 97 H Respiratory Rate 14 14 14 Blood Pressure 88/58 L 80/61 L 92/43 L Pulse Oximetry 91 L 91 L 91 L 12/29/17 21:30 12/29/17 21:44 12/29/17 22:00 Temperature 97.7 F Pulse Rate 108 H 107 H 106 H Respiratory Rate 14 20 14 Blood Pressure 80/50 L 92/43 L 120/66 Pulse Oximetry 96 98 96 12/30/17 00:18 12/30/17 02:00 12/30/17 03:00 Temperature 97.7 F 97.9 F Pulse Rate 68 96 H 86 Respiratory Rate 14 21 12 Blood Pressure 104/59 L 106/57 L 95/53 L Pulse Oximetry 94 L 99 99 12/30/17 03:15 12/30/17 03:17 12/30/17 03:40 Temperature Pulse Rate Respiratory Rate 18 18 Blood Pressure Pulse Oximetry 100 12/30/17 04:00 12/30/17 05:00 12/30/17 06:00 Temperature 97.9 F Pulse Rate 88 86 90 Respiratory Rate 22 14 22 Blood Pressure 96/54 L 107/68 105/56 L Pulse Oximetry 96 95 100 12/30/17 07:00 12/30/17 07:30 12/30/17 08:00 Temperature 99.1 F Pulse Rate 93 H 92 H Respiratory Rate 20 22 Blood Pressure 121/71 108/59 L 107/67 Pulse Oximetry 100 99 99 12/30/17 08:30 12/30/17 09:00 12/30/17 09:30 Temperature Pulse Rate 93 H 96 H 95 H Respiratory Rate 21 22 22 Blood Pressure 92/50 L 112/58 L 101/62 Pulse Oximetry 93 L 96 100 12/30/17 09:31 12/30/17 10:00 12/30/17 10:30 Temperature Pulse Rate 90 Respiratory Rate 16 20 Blood Pressure 99/56 L Pulse Oximetry 88 L 97 12/30/17 11:00 12/30/17 13:00 12/30/17 13:32 Temperature 98.9 F Pulse Rate 98 H 97 H Respiratory Rate 17 26 H 16 Blood Pressure 108/54 L 121/59 L Pulse Oximetry 97 99 Intake & Output 12/29/17 12/30/17 12/30/17 18:59 06:59 18:59 Intake Total 50 / 50 6170 / 6170 1270 / 1270 Output Total 2915 / 2915 Balance 50 / 50 3255 / 3255 1270 / 1270 Weight 112.1 kg 110 kg Intake: IV 50 / 50 1050 / 1050 1270 / 1270 NS Inj 1,000 ML @ 100 mls/hr IV 1000 / 1000 800 / 800 .CONT .Q10H [facility] Rx#:[id number] Calcium Gluconate Inj 2 GM In 120 / 120 NS Inj 100 ML @ 120 mls/hr IV. SIG ONCE ONE Rx#:[id number] Vancomycin Inj 1,000 MG In NS 250 / 250 Inj 250 ML @ 30 mls/hr IV.SIG FIELD ADVISOR [facility] Rx#:[id number] Ancef 2 GM Premix Inj 2 gm In 50 / 50 50 / 50 50 / 50 50 ml @ 100 mls/hr IV.SIG Q8H [facility] Rx#:[id number] Oral 970 / 970 Anesthesia Amount 3500 / 3500 Other 250 / 250 Rbc As-3 Leukoreduced Unit 250 / 250 [id number] Intake (Blood Product) Amt 400 / 400 Rbc As-3 Leukoreduced Unit 400 / 400 [id number] Output: Estimated Blood Loss 600 / 600 Urine Amount (Catheter) 2134 / 2134 Indwelling Urethral Catheter 2134 Wound Drainage 180 / 180 Back 100 / 100 Lower Back 80 / 80 Other: Other Intake Source Rbc As-3 Leukoreduced Unit Saline Solution [id number] Date of Last Bowel Movement 12/28/17 Weight On Admission 112.1 kg Narrative: awake, appears comfortable, NAD 4/5 strength in LE's limited due to surgical pain - Urinary Catheter Management Indwelling Urethral Catheter Cath placed during this visit: yes, but has since been removed by the nurse Reason for continuing: Decision to DC catheter Insertion date: 12/29/17 Insertion time: 11:50 Removal date: 12/30/17 Removal time: 10:48 Assessment and Plan - Plan s/p L3-4, L4-L5, L5-S1 left decompressive laminectomy, interbody arthrodhesis using PEEK cage and autologous bone graft, L3-4, L4-L5, L5-S1 instrumental fixation using transpedicular screws and rods, L3-4, L4-L5, L5-S1 posterolateral fusion using autologous bone graft and demineralized bone matrix. Microsurgical dissection 12/29/17 for Lumbar degenerative disk disease with secondary spinal stenosis acute postoperative blood loss anemia, s/p transfusion 1 unit PRBC Plan: critical care following, appreciate management cont SINGLE POINTED OPERATOR for pain control, norco prn cont bowel regimen SCDs and TEDs for dvt prophylaxis f/u labs appreciate critical care assistance
[2017-12-30] MEDS: Morphine Sulfate Inj 2 MG/ML Vial IV.PUSH PRN (15:55)
[2017-12-30] MEDS: traZODone 100 MG Tablet PO PRN (21:23)
[2017-12-31] MEDS ORDERED: Sodium Chlor 0.9% Inj 500 ML IV.SIG SCH (01:00)
[2017-12-31 01:05] LABS: Baso % (Auto) 0.4 % (0.0-2.0); Eos # (Auto) 0.1 th/mm3 (0.0-0.4); Eos % (Auto) 0.8 % (0.0-4.0); Hematocrit 24.9 % (39.0-51.0); Hemoglobin 8.5 gm/dL (13.0-17.0); Lymph # (Auto) 1.2 th/mm3 (1.0-4.8); Mean Corpuscular HGB Conc 34.3 % (32.0-36.0); Mean Corpuscular Hemoglobin 31.2 pg (27.0-34.0); Mean Platelet Volume 6.9 fL (7.0-11.0); Mono # (Auto) 0.8 th/mm3 (0.0-0.9); Mono % (Auto) 7.8 % (0.0-8.0); Neut # (Auto) 7.6 th/mm3 (1.8-7.7); Platelet Count 172 th/mm3 (150-450); Red Blood Count 2.74 mil/mm3 (4.50-5.90); Red Cell Distribution Width 14.3 % (11.6-17.2); White Blood Count 9.6 th/mm3 (4.0-11.0)
[2017-12-31] MEDS ORDERED: Sodium Chlor 0.9% Inj 250 ML IV.SIG SCH (02:00)
[2017-12-31] MEDS: Sod Chloride 0.9% Inj 1,000 ML IV.CONT SCH ×4 (03:33→21:46)
[2017-12-31] MEDS: Morphine Sulfate Inj 2 MG/ML Vial IV.PUSH PRN ×2 (03:41→09:02)
[2017-12-31] MEDS: Insulin NovoLOG Aspart Correctional Sugar Inj SQ SCH ×3 (05:49→19:10)
[2017-12-31] MEDS: HYDROmorphone PCA Inj 6 MG/30 ML PCA.VIAL PCA PRN ×3 (08:57→18:52)
[2017-12-31] MEDS: Famotidine PF Inj 20 MG/2 ML Vial IV.PUSH SCH ×2 (09:02→21:38)
[2017-12-31] MEDS: Folic Acid 1 MG Tablet PO SCH (09:12)
[2017-12-31] MEDS: Duloxetine 60 MG DR Capsule PO SCH (09:12)
[2017-12-31] MEDS: Senna/Docusate Sodium 8.6/50 MG Tablet PO SCH ×2 (09:13→21:38)
[2017-12-31] MEDS: Gabapentin 400 MG Capsule PO SCH ×3 (09:13→19:09)
[2017-12-31 09:22] LABS: Baso % (Auto) 0.4 % (0.0-2.0); Eos # (Auto) 0.1 th/mm3 (0.0-0.4); Eos % (Auto) 1.2 % (0.0-4.0); Hematocrit 27.2 % (39.0-51.0); Hemoglobin 9.2 gm/dL (13.0-17.0); Lymph # (Auto) 1.3 th/mm3 (1.0-4.8); Lymph % (Auto) 16.1 % (9.0-44.0); Mean Corpuscular Hemoglobin 31.3 pg (27.0-34.0); Mean Platelet Volume 7.2 fL (7.0-11.0); Mono # (Auto) 0.9 th/mm3 (0.0-0.9); Mono % (Auto) 10.6 % (0.0-8.0); Neut # (Auto) 5.9 th/mm3 (1.8-7.7); Neut % (Auto) 71.7 % (16.0-70.0); Platelet Count 147 th/mm3 (150-450); Red Blood Count 2.95 mil/mm3 (4.50-5.90); Red Cell Distribution Width 14.4 % (11.6-17.2); White Blood Count 8.2 th/mm3 (4.0-11.0)
[2017-12-31] MEDS: Chlorhexidine Gluconate 2% 1 Pack (2 Cloths) TOPICAL SCH (09:26)
[2017-12-31 09:52] LABS: Calcium 7.4 mg/dL (8.5-10.1); Carbon Dioxide 26.7 meq/L (21.0-32.0); Potassium 3.9 meq/L (3.5-5.1)
[2017-12-31 10:05] LABS: Total Protein 5.8 g/dL (6.4-8.2)
[2017-12-31] MEDS: Enoxaparin Inj 40 MG/0.4 ML Syringe SQ SCH (13:04)
[2017-12-31] MEDS: Sod Chloride 0.9% Inj 1,000 ML IV.SIG SCH (13:05)
--- NOTE | 2017-12-31 13:36 | P.DCO ---
- Physical Therapy Order: Improve ambulation - Home Health Nursing Order: Medical education, Signs/symptoms of disease process, Medication education-adverse effect, Wound care and dressing changes, Nursing assessment with vital signs - Case Management Consult No - Certification I have seen patient Steven Padilla on 12/31/17. My clinical findings support the need for the requested home health care services because: Limited mobility due to disease progression, Deconditioned with increased weakness, High risk of falls I certify that my clinical findings support that this patient is homebound because: Post-op weakness, Unsafe to leave home unassisted
--- NOTE | 2017-12-31 14:33 | P.PN ---
Subjective Interval history: seen with at bedside patient with chronic back pain complains of post op pain- voided and had a BM already post procedure Physical Exam Vital signs: Vital Signs 12/30/17 15:47 12/30/17 17:09 12/30/17 18:21 Temperature 97.8 F Pulse Rate 99 H Respiratory Rate 18 14 15 Blood Pressure 112/60 Pulse Oximetry 97 12/30/17 20:00 12/30/17 21:23 12/30/17 21:25 Temperature 97.9 F Pulse Rate 117 H Respiratory Rate 20 19 18 Blood Pressure 118/57 L Pulse Oximetry 93 L 12/30/17 23:16 12/30/17 23:49 12/31/17 00:00 Temperature 98.8 F Pulse Rate 120 H Respiratory Rate 18 18 20 Blood Pressure 95/53 L Pulse Oximetry 98 12/31/17 01:36 12/31/17 02:35 12/31/17 02:49 Temperature 98.6 F 98.4 F 97.8 F Pulse Rate 119 H 119 H 113 H Respiratory Rate 20 20 19 Blood Pressure 97/73 L 103/57 L 120/62 Pulse Oximetry 95 97 98 12/31/17 03:35 12/31/17 03:44 12/31/17 03:57 Temperature 98.6 F Pulse Rate 114 H Respiratory Rate 18 18 18 Blood Pressure 100/56 L Pulse Oximetry 98 12/31/17 04:00 12/31/17 05:30 12/31/17 05:52 Temperature 98.1 F 98.6 F Pulse Rate 109 H 108 H Respiratory Rate 20 17 18 Blood Pressure 110/64 116/62 Pulse Oximetry 96 98 12/31/17 07:32 12/31/17 07:58 12/31/17 11:45 Temperature 98.1 F 98.4 F Pulse Rate 105 H 93 H Respiratory Rate 18 18 18 Blood Pressure 104/59 L 132/68 Pulse Oximetry 105 H 98 Intake & Output 12/30/17 12/31/17 12/31/17 18:59 06:59 18:59 Intake Total 1820 / 1820 3683 / 3683 250 / 250 Output Total 835 / 835 840 / 840 200 / 200 Balance 985 / 985 2843 / 2843 50 / 50 Weight 99.79 kg 112.7 kg Intake: IV 1320 / 1320 1800 / 1800 NS Inj 1,000 ML @ 100 mls/hr IV 800 / 800 1300 / 1300 .CONT .Q10H [facility] Rx#:[id number] Calcium Gluconate Inj 2 GM In 120 / 120 NS Inj 100 ML @ 120 mls/hr IV. SIG ONCE ONE Rx#:[id number] NS Inj 500 ML @ 1000 mls/hr IV. 500 / 500 SIG BOLUS [facility] Rx#:[id number] Vancomycin Inj 1,000 MG In NS 250 / 250 Inj 250 ML @ 30 mls/hr IV.SIG MEDIA PLANNER / BUYER [facility] Rx#:[id number] Ancef 2 GM Premix Inj 2 gm In 100 / 100 50 ml @ 100 mls/hr IV.SIG Q8H [facility] Rx#:[id number] Oral 500 / 500 983 / 983 Other 250 / 250 Rbc As-3 Leukoreduced Unit 250 / 250 [id number] Intake (Blood Product) Amt 400 / 400 Rbc As-3 Leukoreduced Unit 400 / 400 [id number] Mass Transfusion Protocol 500 / 500 Output: Urine 200 / 200 800 / 800 200 / 200 Urine Amount (Catheter) 575 / 575 Indwelling Urethral Catheter 575 / 575 Wound Drainage 60 / 60 40 / 40 Lower Back 60 / 60 40 / 40 Other: Other Intake Source Rbc As-3 Leukoreduced Unit Saline Solution [id number] # Voids 2 Date of Last Bowel Movement 12/30/17 12/31/17 # Bowel Movements 1 1 Narrative: awake,alert, pain with mvoement anciteric ungs- no rales regular rhythm abdomen soft, nntender back- brace in place- KOKO bulb post op in place extremtieis no edema moves maryanne xtremities- limited by pain - Urinary Catheter Management Indwelling Urethral Catheter Cath placed during this visit: yes, but has since been removed by the nurse Reason for continuing: Decision to DC catheter Insertion date: 12/29/17 Insertion time: 11:50 Removal date: 12/30/17 Removal time: 10:48 Results - Labs CBC & Chem 7: 12/31/17 08:27 12/31/17 08:27 Laboratory Results - last 24 hr 12/29/17 12/30/17 12/30/17 15:09 17:16 23:28 WBC RBC Hgb Hct MCV MCH MCHC RDW Plt Count MPV Neut % (Auto) Lymph % (Auto) [place] % (Auto) Eos % (Auto) Baso % (Auto) Neut # (Auto) Lymph # (Auto) [place] # (Auto) Eos # (Auto) Baso # (Auto) WBC Differential Differential Comment Sodium Potassium Chloride Carbon Dioxide Anion Gap BUN Creatinine Estimated GFR POC Glucose 153 H 181 H Random Glucose Calcium Prot Corrected Calcium Total Protein MTS Gel Crossmatch See Detail 12/31/17 12/31/17 12/31/17 00:40 05:45 08:27 WBC 9.6 8.2 RBC 2.74 L 2.95 L Hgb 8.5 L 9.2 L Hct 24.9 L 27.2 L MCV 91.0 92.0 MCH 31.2 31.3 MCHC 34.3 34.0 RDW 14.3 14.4 Plt Count 172 147 L MPV 6.9 L 7.2 Neut % (Auto) 79.0 H 71.7 H Lymph % (Auto) 12.0 16.1 [place] % (Auto) 7.8 10.6 H Eos % (Auto) 0.8 1.2 Baso % (Auto) 0.4 0.4 Neut # (Auto) 7.6 5.9 Lymph # (Auto) 1.2 1.3 [place] # (Auto) 0.8 0.9 Eos # (Auto) 0.1 0.1 Baso # (Auto) 0.0 0.0 WBC Differential . . Differential Comment Auto diff final Auto diff final Sodium Potassium Chloride Carbon Dioxide Anion Gap BUN Creatinine Estimated GFR POC Glucose 184 H Random Glucose Calcium Prot Corrected Calcium Total Protein MTS Gel Crossmatch 12/31/17 12/31/17 08:27 11:50 WBC RBC Hgb Hct MCV MCH MCHC RDW Plt Count MPV Neut % (Auto) Lymph % (Auto) [place] % (Auto) Eos % (Auto) Baso % (Auto) Neut # (Auto) Lymph # (Auto) [place] # (Auto) Eos # (Auto) Baso # (Auto) WBC Differential Differential Comment Sodium 136 Potassium 3.9 Chloride 101 Carbon Dioxide 26.7 Anion Gap 8 BUN 19 H Creatinine 0.99 Estimated GFR 76 L POC Glucose 149 H Random Glucose 123 H Calcium 7.4 L* Prot Corrected Calcium 8.1 L Total Protein 5.8 L MTS Gel Crossmatch Assessment and Plan - Plan Status post lumbar decompressive laminectomy and fusion for symptomatic spinal stenosis Hypotension Postop anemia Prolonged prone time approximately 7 hours History of hypertension Type 2 diabetes Dyslipidemia Rheumatoid arthritis PLAN: NEURO: -Postop management per Dr. Hawley, no evidence of significant postop bleeding -EBL 600 mL during surgery -Pain controlled with CHANNEL REBUILDER pump, PO hydrocodone -PT once cleared by Dr. Hawley RESP: -DuoNeb every 2 hours as needed -Aggressive pulmonary toilet CV: -Normal saline IV fluids -Received 3.5 L of crystalloids in the OR -Urban-Synephrine if needed to keep map above 65 -Hold all home antihypertensives including lisinopril hydrochlorothiazide GI: -Diabetic diet, IV famotidine -Bowel regimen : -Monitor renal function closely. Maintain Sheehan catheter for hourly intake output ID: -Perioperative antibiotics per Dr. Hawley HEME: -Monitor CBC, coags -Transfuse 1 unit PRBC due to hypotension and hemoglobin drop in 2 g MSK: -On methotrexate for rheumatoid arthritis -Med rec does not show that patient is on chronic steroids -No indication for stress steroids at this time but will start if persistently hypotensive ENDO: -Electrolyte replacement per protocol -Sliding scale insulin PROPH: -Bilateral lower extremity SCDs. famotidine -Avoid chemical DVT prophylaxis due to surgery LINES: -Utilize peripheral IVs, central line if needed, maintain arterial line for 24 hours or until stable Overall impression: Stable hemodynamics and respiratory function status post lumbar laminectomy. Patient has chronic pain problems and does complain but he appears comfortable in the bed on the CHANNEL REBUILDER pump at present doses.
--- NOTE | 2017-12-31 15:12 | P.PNNS ---
Subjective Interval history: still requiring MATERIAL STRESS TESTER due to moderate postop pain, + BM yesterday. Physical Exam Vital signs: Vital Signs 12/30/17 15:47 12/30/17 17:09 12/30/17 18:21 Temperature 97.8 F Pulse Rate 99 H Respiratory Rate 18 14 15 Blood Pressure 112/60 Pulse Oximetry 97 12/30/17 20:00 12/30/17 21:23 12/30/17 21:25 Temperature 97.9 F Pulse Rate 117 H Respiratory Rate 20 19 18 Blood Pressure 118/57 L Pulse Oximetry 93 L 12/30/17 23:16 12/30/17 23:49 12/31/17 00:00 Temperature 98.8 F Pulse Rate 120 H Respiratory Rate 18 18 20 Blood Pressure 95/53 L Pulse Oximetry 98 12/31/17 01:36 12/31/17 02:35 12/31/17 02:49 Temperature 98.6 F 98.4 F 97.8 F Pulse Rate 119 H 119 H 113 H Respiratory Rate 20 20 19 Blood Pressure 97/73 L 103/57 L 120/62 Pulse Oximetry 95 97 98 12/31/17 03:35 12/31/17 03:44 12/31/17 03:57 Temperature 98.6 F Pulse Rate 114 H Respiratory Rate 18 18 18 Blood Pressure 100/56 L Pulse Oximetry 98 12/31/17 04:00 12/31/17 05:30 12/31/17 05:52 Temperature 98.1 F 98.6 F Pulse Rate 109 H 108 H Respiratory Rate 20 17 18 Blood Pressure 110/64 116/62 Pulse Oximetry 96 98 12/31/17 07:32 12/31/17 07:58 12/31/17 11:45 Temperature 98.1 F 98.4 F Pulse Rate 105 H 93 H Respiratory Rate 18 18 18 Blood Pressure 104/59 L 132/68 Pulse Oximetry 105 H 98 Intake & Output 12/30/17 12/31/17 12/31/17 18:59 06:59 18:59 Intake Total 1820 / 1820 3683 / 3683 250 / 250 Output Total 835 / 835 840 / 840 200 / 200 Balance 985 / 985 2843 / 2843 50 / 50 Weight 99.79 kg 112.7 kg Intake: IV 1320 / 1320 1800 / 1800 NS Inj 1,000 ML @ 100 mls/hr IV 800 / 800 1300 / 1300 .CONT .Q10H [facility] Rx#:[id number] Calcium Gluconate Inj 2 GM In 120 / 120 NS Inj 100 ML @ 120 mls/hr IV. SIG ONCE ONE Rx#:[id number] NS Inj 500 ML @ 1000 mls/hr IV. 500 / 500 SIG BOLUS [facility] Rx#:[id number] Vancomycin Inj 1,000 MG In NS 250 / 250 Inj 250 ML @ 30 mls/hr IV.SIG SOFTWARE LICENSING SPECIALIST [facility] Rx#:[id number] Ancef 2 GM Premix Inj 2 gm In 100 / 100 50 ml @ 100 mls/hr IV.SIG Q8H [facility] Rx#:[id number] Oral 500 / 500 983 / 983 Other 250 / 250 Rbc As-3 Leukoreduced Unit 250 / 250 [id number] Intake (Blood Product) Amt 400 / 400 Rbc As-3 Leukoreduced Unit 400 / 400 [id number] Mass Transfusion Protocol 500 / 500 Output: Urine 200 / 200 800 / 800 200 / 200 Urine Amount (Catheter) 575 / 575 Indwelling Urethral Catheter 575 / 575 Wound Drainage 60 / 60 40 / 40 Lower Back 60 / 60 40 / 40 Other: Other Intake Source Rbc As-3 Leukoreduced Unit Saline Solution [id number] # Voids 2 Date of Last Bowel Movement 12/30/17 12/31/17 # Bowel Movements 1 1 Narrative: awake, appears comfortable, NAD 4/5 strength in LE's limited due to surgical pain - Urinary Catheter Management Indwelling Urethral Catheter Cath placed during this visit: yes, but has since been removed by the nurse Reason for continuing: Decision to DC catheter Insertion date: 12/29/17 Insertion time: 11:50 Removal date: 12/30/17 Removal time: 10:48 Assessment and Plan - Plan s/p L3-4, L4-L5, L5-S1 left decompressive laminectomy, interbody arthrodhesis using PEEK cage and autologous bone graft, L3-4, L4-L5, L5-S1 instrumental fixation using transpedicular screws and rods, L3-4, L4-L5, L5-S1 posterolateral fusion using autologous bone graft and demineralized bone matrix. 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
[2017-12-31] MEDS: traZODone 100 MG Tablet PO PRN (21:41)
[2018-01-01] MEDS: Insulin NovoLOG Aspart Correctional Sugar Inj SQ SCH ×4 (01:03→18:30)
[2018-01-01] MEDS: Sod Chloride 0.9% Inj 1,000 ML IV.CONT SCH ×2 (03:47→20:53)
[2018-01-01] MEDS: HYDROmorphone PCA Inj 6 MG/30 ML PCA.VIAL PCA PRN ×2 (07:35→15:38)
[2018-01-01] MEDS: Senna/Docusate Sodium 8.6/50 MG Tablet PO SCH ×2 (08:24→21:01)
[2018-01-01] MEDS: Sod Chloride 0.9% Inj 1,000 ML IV.SIG SCH ×3 (08:24→18:36)
[2018-01-01] MEDS: Folic Acid 1 MG Tablet PO SCH (08:26)
[2018-01-01] MEDS: Gabapentin 400 MG Capsule PO SCH ×3 (08:26→18:30)
[2018-01-01] MEDS: Duloxetine 60 MG DR Capsule PO SCH (08:26)
[2018-01-01] MEDS: Enoxaparin Inj 40 MG/0.4 ML Syringe SQ SCH (08:27)
[2018-01-01] MEDS: Famotidine PF Inj 20 MG/2 ML Vial IV.PUSH SCH ×2 (08:27→21:05)
--- NOTE | 2018-01-01 09:55 | P.PNNS ---
Subjective Interval history: No acute issues overnight, but did have significant pain, and says that it was hard to sleep. Complains of significant pain this morning. Has been using his hydrocodone in addition to HOME IMPROVEMENT INSTALLER, but does not feel like he has achieved good pain control. Physical Exam Vital signs: Vital Signs 12/31/17 11:45 12/31/17 15:53 12/31/17 20:00 Temperature 98.4 F 98.1 F 98 F Pulse Rate 93 H 103 H 102 H Respiratory Rate 18 18 Blood Pressure 132/68 146/80 H 151/83 H Pulse Oximetry 98 94 L 96 01/01/18 00:00 01/01/18 03:32 01/01/18 04:00 Temperature 98.2 F 98.5 F Pulse Rate 105 H 104 H Respiratory Rate 18 Blood Pressure 122/57 L 116/55 L Pulse Oximetry 94 L 94 L 01/01/18 04:20 01/01/18 08:00 Temperature 98.7 F Pulse Rate 107 H Respiratory Rate 18 20 Blood Pressure 172/82 H Pulse Oximetry 95 Intake & Output 12/31/17 01/01/18 01/01/18 18:59 06:59 18:59 Intake Total 950 / 950 1999 / 1999 663 / 663 Output Total 200 / 200 1100 / 1100 1240 / 1240 Balance 750 / 750 900 / 900 -577 / -577 Weight 113.2 kg Intake: IV 700 / 700 1999 / 1999 NS Inj 1,000 ML @ 100 mls/hr IV 700 / 700 1999 / 1999 .CONT .Q10H [facility] Rx#:[id number] Oral 663 / 663 Other 250 / 250 Rbc As-3 Leukoreduced Unit 250 / 250 [id number] Output: Urine 200 / 200 1100 / 1100 1200 / 1200 Wound Drainage 40 / 40 Lower Back 40 / 40 Other: Other Intake Source Rbc As-3 Leukoreduced Unit Saline Solution [id number] # Voids 3 Date of Last Bowel Movement 12/31/17 12/31/17 # Bowel Movements 1 - Routine Neurological Exam Alert and conversant, answers questions appropriately. Normal strength throughout. His KOKO output increased to 100 mL's from 80 mL's the previous day. Dressing in place. - Urinary Catheter Management Indwelling Urethral Catheter Cath placed during this visit: yes, but has since been removed by the nurse Reason for continuing: Decision to DC catheter Insertion date: 12/29/17 Insertion time: 11:50 Removal date: 12/30/17 Removal time: 10:48 Assessment and Plan - Plan s/p L3-4, L4-L5, L5-S1 left decompressive laminectomy, interbody arthrodhesis using PEEK cage and autologous bone graft, L3-4, L4-L5, L5-S1 instrumental fixation using transpedicular screws and rods, L3-4, L4-L5, L5-S1 posterolateral fusion using autologous bone graft and demineralized bone matrix. 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 cont bowel regimen SCDs and TEDs for dvt prophylaxis, sq lovenox KOKO output increased to 100 mL's on Lovenox, not concerning enough to discontinue Lovenox but will keep it in place today and follow output PT, mobilize with TLSO brace case mgt consult for dc planning HHC with PT
[2018-01-01] MEDS: oxyCODONE/Acetaminophen 10/325 Tablet PO PRN ×3 (12:05→21:01)
--- NOTE | 2018-01-01 13:37 | P.PN ---
Subjective Interval history: seen with supportive at bedside complains of back pain- -d/w them- on LITERARY AGENT pump and po pain meds adjusted by Neurosurgery voiding spontaenously Physical Exam Vital signs: Vital Signs 12/31/17 15:53 12/31/17 20:00 01/01/18 00:00 Temperature 98.1 F 98 F 98.2 F Pulse Rate 103 H 102 H 105 H Respiratory Rate 18 18 18 Blood Pressure 146/80 H 151/83 H 122/57 L Pulse Oximetry 94 L 96 94 L 01/01/18 03:32 01/01/18 04:00 01/01/18 04:20 Temperature 98.5 F Pulse Rate 104 H Respiratory Rate 18 18 18 Blood Pressure 116/55 L Pulse Oximetry 94 L 01/01/18 08:00 01/01/18 12:00 Temperature 98.7 F 98 F Pulse Rate 107 H 109 H Respiratory Rate 20 18 Blood Pressure 172/82 H 162/75 H Pulse Oximetry 95 94 L Intake & Output 12/31/17 01/01/18 01/01/18 18:59 06:59 18:59 Intake Total 950 / 950 1999 663 / 663 Output Total 200 / 200 1100 / 1100 1690 / 1690 Balance 750 / 750 900 / 900 -1027 / -1027 Weight 113.2 kg Intake: IV 700 / 700 1999 NS Inj 1,000 ML @ 100 mls/hr IV 700 / 700 1999 .CONT .Q10H [facility] Rx#:[id number] Oral 663 / 663 Other 250 / 250 Rbc As-3 Leukoreduced Unit 250 / 250 [id number] Output: Urine 200 / 200 1100 / 1100 1650 / 1650 Wound Drainage 40 / 40 Lower Back 40 / 40 Other: Other Intake Source Rbc As-3 Leukoreduced Unit Saline Solution [id number] # Voids 3 Date of Last Bowel Movement 12/31/17 12/31/17 # Bowel Movements 1 Narrative: awake,alert, movements- limited by pain anicteric lungs- no rales regular rhythm abdomen soft, nontender back- brace in place- KOKO bulb post op in place extremities no edema moves all extremities- limited by pain - Urinary Catheter Management Indwelling Urethral Catheter Cath placed during this visit: yes, but has since been removed by the nurse Reason for continuing: Decision to DC catheter Insertion date: 12/29/17 Insertion time: 11:50 Removal date: 12/30/17 Removal time: 10:48 Results - Labs CBC & Chem 7: 12/31/17 08:27 12/31/17 08:27 Laboratory Results - last 24 hr 12/31/17 01/01/18 01/01/18 16:50 00:22 04:24 POC Glucose 141 H 195 H 150 H 01/01/18 01/01/18 06:38 12:01 POC Glucose 152 H 147 H Assessment and Plan - Plan Status post lumbar decompressive laminectomy and fusion for symptomatic spinal stenosis Hypotension Postop anemia Prolonged prone time approximately 7 hours History of hypertension Type 2 diabetes Dyslipidemia Rheumatoid arthritis PLAN: NEURO: -Postop management per Dr. Hawley, no evidence of significant postop bleeding -EBL 600 mL during surgery -Pain controlled with LITERARY AGENT pump, PO pain meds -PT once cleared by Dr. Hawley RESP: -DuoNeb every 2 hours as needed -Aggressive pulmonary toilet Histroy of hypertension -Hold all home antihypertensives including lisinopril hydrochlorothiazide- - some low readings post operative due to blood loss - now some elevated readings likely due to pain - monitor - will restart meds eventually GI: -Diabetic diet, IV famotidine -Bowel regimen : -Monitor renal function closely. Maintain Sheehan catheter for hourly intake output ID: -Perioperative antibiotics per Dr. Hawley HEME: -Monitor CBC, coags -Transfused 1 unit PRBC due to hypotension and hemoglobin drop in 2 g MSK: -On methotrexate for rheumatoid arthritis -Med rec does not show that patient is on chronic steroids -No indication for stress steroids at this time but will start if persistently hypotensive ENDO: -Electrolyte replacement per protocol -Sliding scale insulin PROPH: -Bilateral lower extremity SCDs. famotidine -Avoid chemical DVT prophylaxis due to surgery LINES: -Utilize peripheral IVs, central line if needed, maintain arterial line for 24 hours or until stable Overall impression: Stable hemodynamics and respiratory function status post lumbar laminectomy. Patient has chronic pain problems and does complain but he appears comfortable in the bed on the LITERARY AGENT pump at present doses.
[2018-01-01] MEDS: Chlorhexidine Gluconate 2% 1 Pack (2 Cloths) TOPICAL SCH (20:52)
[2018-01-01] MEDS: traZODone 100 MG Tablet PO PRN (22:20)
[2018-01-02] MEDS: oxyCODONE/Acetaminophen 10/325 Tablet PO PRN ×5 (00:55→17:42)
[2018-01-02] MEDS: HYDROmorphone PCA Inj 6 MG/30 ML PCA.VIAL PCA PRN ×3 (01:20→19:02)
[2018-01-02] MEDS: Insulin NovoLOG Aspart Correctional Sugar Inj SQ SCH ×4 (01:28→20:06)
[2018-01-02] MEDS: Sod Chloride 0.9% Inj 1,000 ML IV.CONT SCH ×3 (03:54→20:05)
[2018-01-02] MEDS: Senna/Docusate Sodium 8.6/50 MG Tablet PO SCH ×2 (09:28→20:30)
[2018-01-02] MEDS: Gabapentin 400 MG Capsule PO SCH (09:28)
[2018-01-02] MEDS: Famotidine PF Inj 20 MG/2 ML Vial IV.PUSH SCH (09:28)
[2018-01-02] MEDS: Folic Acid 1 MG Tablet PO SCH (09:28)
[2018-01-02] MEDS: Enoxaparin Inj 40 MG/0.4 ML Syringe SQ SCH (09:28)
[2018-01-02] MEDS: Duloxetine 60 MG DR Capsule PO SCH (09:28)
--- NOTE | 2018-01-02 09:58 | P.PNNS ---
Subjective Interval history: No acute issues overnight. Still endorses significant pain. However, he seems much more capable of carrying on conversation today, moving himself in bed, using his legs, etc. Physical Exam Vital signs: Vital Signs 01/01/18 12:00 01/01/18 16:00 01/01/18 20:00 Temperature 98 F 98.6 F 98.3 F Pulse Rate 109 H 110 H 105 H Respiratory Rate 18 20 18 Blood Pressure 162/75 H 158/66 H 216/99 H Pulse Oximetry 94 L 93 L 97 01/01/18 20:08 01/01/18 22:24 01/01/18 23:59 Temperature 98 F Pulse Rate 101 H 109 H Respiratory Rate 10 L 18 Blood Pressure 162/85 H Pulse Oximetry 97 01/02/18 00:00 01/02/18 04:00 01/02/18 07:49 Temperature 98.6 F 98.7 F 98.6 F Pulse Rate 114 H 106 H 112 H Respiratory Rate 18 20 20 Blood Pressure 130/61 134/70 151/76 H Pulse Oximetry 93 L 92 L 93 L Intake & Output 01/01/18 01/02/18 01/02/18 19:59 06:59 18:59 Intake Total Output Total Balance Intake: IV NS Inj 1,000 ML @ 100 mls/hr IV .CONT .Q10H [facility] Rx#:[id number] NS Inj 1,000 ML @ 30 mls/hr IV. SIG .Q24H [facility] Rx#:[id number] Oral Output: Urine Wound Drainage Lower Back Other: Date of Last Bowel Movement - Routine Neurological Exam Alert, conversant. Normal strength in the uppers. Good strength in his lowers as well, no obvious focal weakness. KOKO drain put out 50 mL's for 24 hours. - Urinary Catheter Management Indwelling Urethral Catheter Cath placed during this visit: yes, but has since been removed by the nurse Reason for continuing: Decision to DC catheter Insertion date: 12/29/17 Insertion time: 11:50 Removal date: 12/30/17 Removal time: 10:48 Assessment and Plan - Plan s/p L3-4, L4-L5, L5-S1 left decompressive laminectomy, interbody arthrodhesis using PEEK cage and autologous bone graft, L3-4, L4-L5, L5-S1 instrumental fixation using transpedicular screws and rods, L3-4, L4-L5, L5-S1 posterolateral fusion using autologous bone graft and demineralized bone matrix. 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 Changed his [place] to Percocet yesterday, seems to have better pain control now. He is still having some neuropathic pain, he is on a small dose of gabapentin but has had a higher dose in the past and felt that it was beneficial. He requested a higher dose, and we increased it to 600 3 times daily today. He is also having muscle spasms and requested a muscle relaxer; added Flexeril 10 mg every 8 hours as needed for that. His requested a possible fentanyl patch, but I do not think that is indicated for this postsurgical pain. He is clearly doing better today than he was yesterday, and I anticipate that he will continue to improve steadily. cont bowel regimen SCDs and TEDs for dvt prophylaxis, sq lovenox KOKO only put out 50, we will DC that today PT, mobilize with TLSO brace case mgt consult for dc planning HHC with PT
[2018-01-02] MEDS: Chlorhexidine Gluconate 2% 1 Pack (2 Cloths) TOPICAL SCH (11:18)
[2018-01-02] MEDS: Gabapentin 300 MG Capsule PO SCH ×3 (12:57→17:42)
[2018-01-02] MEDS: Sod Chloride 0.9% Inj 1,000 ML IV.SIG SCH ×2 (14:02→17:05)
--- NOTE | 2018-01-02 14:04 | P.PN ---
Subjective Interval history: seen with at bedside feeling better- cooperative voiding well + constipation- good bowel sounds, good po Physical Exam Vital signs: Vital Signs 01/01/18 16:00 01/01/18 20:00 01/01/18 20:08 Temperature 98.6 F 98.3 F Pulse Rate 110 H 105 H Respiratory Rate 20 18 10 L Blood Pressure 158/66 H 216/99 H Pulse Oximetry 93 L 97 01/01/18 22:24 01/01/18 23:59 01/02/18 00:00 Temperature 98 F 98.6 F Pulse Rate 101 H 109 H 114 H Respiratory Rate 18 18 Blood Pressure 162/85 H 130/61 Pulse Oximetry 97 93 L 01/02/18 04:00 01/02/18 07:49 01/02/18 11:24 Temperature 98.7 F 98.6 F Pulse Rate 106 H 112 H Respiratory Rate 20 20 17 Blood Pressure 134/70 151/76 H Pulse Oximetry 92 L 93 L 01/02/18 11:50 Temperature 98.7 F Pulse Rate 105 H Respiratory Rate 18 Blood Pressure 139/75 Pulse Oximetry 93 L Intake & Output 01/01/18 01/02/18 01/02/18 19:59 06:59 18:59 Intake Total Output Total 500 / 500 Balance -500 / -500 Intake: IV NS Inj 1,000 ML @ 100 mls/hr IV .CONT .Q10H [facility] Rx#:[id number] NS Inj 1,000 ML @ 30 mls/hr IV. SIG .Q24H [facility] Rx#:[id number] Oral Output: Urine 500 / 500 Wound Drainage Lower Back Other: Date of Last Bowel Movement Narrative: awake,alert, movements- limited by pain anicteric lungs- no rales regular rhythm abdomen soft, nontender back- brace in place- KOKO bulb post op in place extremities no edema moves all extremities- more today- motor 5/5 all extremities, no sensory deficits - Urinary Catheter Management Indwelling Urethral Catheter Cath placed during this visit: yes, but has since been removed by the nurse Reason for continuing: Decision to DC catheter Insertion date: 12/29/17 Insertion time: 11:50 Removal date: 12/30/17 Removal time: 10:48 Results - Labs CBC & Chem 7: 12/31/17 08:27 12/31/17 08:27 Laboratory Results - last 24 hr 01/01/18 01/02/18 01/02/18 17:54 00:54 05:35 POC Glucose 165 H 166 H 145 H 01/02/18 12:33 POC Glucose 180 H Assessment and Plan - Plan Status post lumbar decompressive laminectomy and fusion for symptomatic spinal stenosis Hypotension Postop anemia Prolonged prone time approximately 7 hours History of hypertension Type 2 diabetes Dyslipidemia Rheumatoid arthritis PLAN: NEURO: -Postop management per Dr. Hawley, no evidence of significant postop bleeding -EBL 600 mL during surgery -Pain controlled with BUGGY DRIVER pump, PO pain meds started too- better control -PT daily RESP: -DuoNeb every 2 hours as needed -Aggressive pulmonary toilet Histroy of hypertension -Hold all home antihypertensives including lisinopril hydrochlorothiazide- - some low readings post operative due to blood loss - now some elevated readings likely due to pain - on HCTZ and Lisinorpil 20 as OP. Restart Lisinorpil at 10 mg daily today and monitor GI: -Diabetic diet, famotidine -Bowel regimen : -Monitor renal function closely. voiding well- foly out ID: -Perioperative antibiotics per Dr. Hawley HEME: -Monitor CBC, coags -S/P Transfused 1 unit PRBC due to hypotension and hemoglobin drop in 2 g MSK: -On methotrexate for rheumatoid arthritis ENDO: -Electrolyte replacement per protocol -Sliding scale insulin PROPH: -Bilateral lower extremity SCDs. famotidine -Avoid chemical DVT prophylaxis due to surgery LINES: -Utilize peripheral IVs, central line if needed, maintain arterial line for 24 hours or until stable Overall impression: Stable hemodynamics and respiratory function status post lumbar laminectomy. Patient has chronic pain problems and does complain but he appears comfortable in the bed on the BUGGY DRIVER pump at present doses.
[2018-01-02] MEDS ORDERED: Lisinopril 10 MG Tablet PO SCH (14:30)
[2018-01-02] MEDS: Famotidine 20 MG Tablet PO SCH (20:30)
[2018-01-03] MEDS: oxyCODONE/Acetaminophen 10/325 Tablet PO PRN ×4 (02:30→16:24)
[2018-01-03] MEDS: Bisacodyl 10 MG Supp RECTAL PRN (02:45)
[2018-01-03] MEDS: Insulin NovoLOG Aspart Correctional Sugar Inj SQ SCH ×3 (03:28→12:20)
[2018-01-03] MEDS: HYDROmorphone PCA Inj 6 MG/30 ML PCA.VIAL PCA PRN (05:59)
[2018-01-03] MEDS: Sod Chloride 0.9% Inj 1,000 ML IV.CONT SCH ×2 (07:38→15:49)
[2018-01-03] MEDS: Gabapentin 300 MG Capsule PO SCH ×2 (08:11→12:19)
[2018-01-03] MEDS: Senna/Docusate Sodium 8.6/50 MG Tablet PO SCH (08:11)
[2018-01-03] MEDS: Duloxetine 60 MG DR Capsule PO SCH (08:11)
[2018-01-03] MEDS: Folic Acid 1 MG Tablet PO SCH (08:11)
[2018-01-03] MEDS: Enoxaparin Inj 40 MG/0.4 ML Syringe SQ SCH (08:12)
[2018-01-03] MEDS: Famotidine 20 MG Tablet PO SCH (08:12)
--- NOTE | 2018-01-03 09:52 | P.DCO ---
- Physical Therapy Order: Improve ambulation - Home Health Nursing Order: Medical education, Signs/symptoms of disease process, Medication education-adverse effect, Wound care and dressing changes, Nursing assessment with vital signs - Case Management Consult No - Certification I have seen patient Steven Padilla on 01/03/18. My clinical findings support the need for the requested home health care services because: Deconditioned with increased weakness, High risk of falls I certify that my clinical findings support that this patient is homebound because: Post-op weakness, Unsteady gait/balance
[2018-01-03] MEDS: Sod Chloride 0.9% Inj 1,000 ML IV.SIG SCH ×2 (12:02→12:03)
[2018-01-03] MEDS ORDERED: hydroCHLOROthiazide 25 MG Tablet PO SCH (12:45)
--- NOTE | 2018-01-03 12:52 | P.PN ---
Subjective Interval history: pain controlled no incontnence seen with at bedside- supportive states have everything requesting for a shower chair Physical Exam Vital signs: Vital Signs 01/02/18 16:00 01/02/18 20:00 01/02/18 23:39 Temperature 98 F 98.0 F Pulse Rate 93 H 105 H Respiratory Rate 20 20 18 Blood Pressure 162/73 H 174/98 H Pulse Oximetry 100 92 L 01/03/18 00:00 01/03/18 00:04 01/03/18 03:57 Temperature 98 F Pulse Rate 110 H 110 H 107 H Respiratory Rate 20 Blood Pressure 144/79 H Pulse Oximetry 93 L 01/03/18 04:00 01/03/18 07:10 01/03/18 08:00 Temperature 97.9 F 98.7 F Pulse Rate 108 H 109 H Respiratory Rate 18 16 18 Blood Pressure 151/81 H 159/90 H Pulse Oximetry 92 L 95 01/03/18 08:48 01/03/18 10:02 01/03/18 12:39 Temperature Pulse Rate Respiratory Rate 16 16 16 Blood Pressure Pulse Oximetry Intake & Output 01/02/18 01/03/18 01/03/18 18:59 06:59 18:59 Intake Total 2600 / 2600 720 / 720 1000 / 1000 Output Total 1100 / 1100 Balance 1500 / 1500 720 / 720 1000 / 1000 Intake: IV 2000 / 2000 0 / 0 1000 / 1000 NS Inj 1,000 ML @ 100 mls/hr IV 1000 / 1000 0 / 0 1000 / 1000 .CONT .Q10H [facility] Rx#:[id number] NS Inj 1,000 ML @ 30 mls/hr IV. 1000 / 1000 SIG .Q24H [facility] Rx#:[id number] Oral 600 / 600 720 / 720 Output: Urine 1100 / 1100 Other: Date of Last Bowel Movement 12/31/17 01/03/18 01/03/18 Narrative: awake,alert, movements- limited by pain anicteric lungs- no rales regular rhythm abdomen soft, nontender back- brace in place- extremities no edema moves all extremities- more today- motor 5/5 all extremities, no sensory deficits - Urinary Catheter Management Indwelling Urethral Catheter Cath placed during this visit: yes, but has since been removed by the nurse Reason for continuing: Decision to DC catheter Insertion date: 12/29/17 Insertion time: 11:50 Removal date: 12/30/17 Removal time: 10:48 Results - Labs CBC & Chem 7: 12/31/17 08:27 12/31/17 08:27 Laboratory Results - last 24 hr 01/02/18 01/02/18 01/03/18 17:25 23:53 06:03 POC Glucose 167 H 149 H 151 H 01/03/18 11:51 POC Glucose 158 H Assessment and Plan - Plan Status post lumbar decompressive laminectomy and fusion for symptomatic spinal stenosis Hypotension Postop anemia Prolonged prone time approximately 7 hours History of hypertension Type 2 diabetes Dyslipidemia Rheumatoid arthritis PLAN: NEURO: -Postop management per Dr. Hawley, no evidence of significant postop bleeding -EBL 600 mL during surgery - pain meds per Dr. Hawley -PT daily RESP: -DuoNeb every 2 hours as needed -Aggressive pulmonary toilet Histroy of hypertension - home antihypertensives including lisinopril hydrochlorothiazide-due to - some low readings post operative due to blood loss - now some elevated readings likely due to pain - on HCTZ and Lisinorpil 20 as OP. Restart Lisinorpil at 10 mg daily 01/02 restart HCTZ 25 mg daily d/w - OP ff up with PCP- Dr. Dorado GI: -Diabetic diet, famotidine -Bowel regimen : -Monitor renal function closely. voiding well- foly out ID: -Perioperative antibiotics per Dr. Hawley HEME: -Monitor CBC, coags -S/P Transfused 1 unit PRBC due to hypotension and hemoglobin drop in 2 g MSK: -On methotrexate for rheumatoid arthritis ENDO: -Electrolyte replacement per protocol -Sliding scale insulin PROPH: -Bilateral lower extremity SCDs. famotidine -Avoid chemical DVT prophylaxis due to surgery LINES: -Utilize peripheral IVs, central line if needed, maintain arterial line for 24 hours or until stable stable for DC if cleared with Dr. Hawley OP ff up with PCP - Dr. Dorado in 3 days
[2018-01-03] MEDS: Morphine Sulfate Inj 2 MG/ML Vial IV.PUSH PRN (13:03)
--- NOTE | 2018-01-03 15:01 | P.DS ---
Date of admission: 12/29/17 10:03 Primary care physician: Tung Stahl MD Brief History from admission: Mr Padilla is a 62 year-old male who presented with intractable mechanical back pain and papi evidence of L4, L5, and S1 lower extremity radiculopathy. He had multlevel severe degenerative disk disease with secondary spinal stenosis, which correlated with his poliradiculopathy. He has failed maximum nonsurgical management including multiple modalities of conservative treatment as well as pain management interventions by an interventional pain specialist. A surgical decompression and arthrodhesis were indicated as a last resort. DS: Summary Hospital Course: Mr. Padilla underwent L3-4, L4-L5, L5-S1 left decompressive laminectomy, interbody arthrodhesis using PEEK cage and autologous bone graft, L3-4, L4-L5, L5-S1 instrumental fixation using transpedicular screws and rods, L3-4, L4-L5, L5-S1 posterolateral fusion using autologous bone graft and demineralized bone matrix. Microsurgical dissection for Lumbar degenerative disk disease with secondary spinal stenosis on 12/29/17. Following surgery he required transfusion of 1 unit PRBC and admitted to intensive care for hemodynamic monitoring. He was cleared to transfer out of ICU to med/surg unit. His pain was kept controlled using CIGARETTE MACHINE FILLER, and oral pain medications as needed. His KOKO drain removed. PT evaluation and recommendations in place. Medicine cleared for discharge. Dr. Hawley ordered dc home with [facility] PT today. - Time Spent with Patient Total time spent providing and/or coordinating discharge services: Less than 30 minutes - Quality: VTE Deep Vein Thrombosis/Pulmonary Embolism Present on Admission: No Exam Vital signs: Vital Signs 01/02/18 16:00 01/02/18 20:00 01/02/18 23:39 Temperature 98 F 98.0 F Pulse Rate 93 H 105 H Respiratory Rate 20 20 18 Blood Pressure 162/73 H 174/98 H Pulse Oximetry 100 92 L 01/03/18 00:00 01/03/18 00:04 01/03/18 03:57 Temperature 98 F Pulse Rate 110 H 110 H 107 H Respiratory Rate 20 Blood Pressure 144/79 H Pulse Oximetry 93 L 01/03/18 04:00 01/03/18 07:10 01/03/18 08:00 Temperature 97.9 F 98.7 F Pulse Rate 108 H 109 H Respiratory Rate 18 16 18 Blood Pressure 151/81 H 159/90 H Pulse Oximetry 92 L 95 01/03/18 08:48 01/03/18 10:02 01/03/18 12:00 Temperature 99.8 F H Pulse Rate 86 Respiratory Rate 16 16 18 Blood Pressure 119/69 Pulse Oximetry 98 01/03/18 12:39 01/03/18 13:07 Temperature Pulse Rate Respiratory Rate 16 16 Blood Pressure Pulse Oximetry Intake & Output 01/02/18 01/03/18 01/03/18 18:59 06:59 18:59 Intake Total 2600 / 2600 720 / 720 1000 / 1000 Output Total 1100 / 1100 Balance 1500 / 1500 720 / 720 1000 / 1000 Intake: IV 2000 / 2000 0 / 0 1000 / 1000 NS Inj 1,000 ML @ 100 mls/hr IV 1000 / 1000 0 / 0 1000 / 1000 .CONT .Q10H [facility] Rx#:[id number] NS Inj 1,000 ML @ 30 mls/hr IV. 1000 / 1000 SIG .Q24H [facility] Rx#:[id number] Oral 600 / 600 720 / 720 Output: Urine 1100 / 1100 Other: Date of Last Bowel Movement 12/31/17 01/03/18 01/03/18 Results Labs on day of discharge: Labs from last 24 hours 01/03/18 01/03/18 01/02/18 11:51 06:03 23:53 POC Glucose 158 H 151 H 149 H 01/02/18 17:25 POC Glucose 167 H - Impressions ITS Impressions Lumbar Spine X-Ray 12/29/17 00:00 CONCLUSION: Postoperative fusion as above. Discharge Plan - Discharge Disposition Patient Disposition: /Home Health Service - Discharge Condition Condition: Stable - Discharge Order Discharge Orders: Discharge Order (Routine); Ordered 01/03/18 [facility] By[facility] Ordered 01/03/18 Ordered By: Geeta Cortez - Physicians Team Primary Care Provider: Tung Stahl Attending Provider: Choco Hawley Other Providers: Onofre Jain MD ; Geeta Cortez MD - Rxs /Orders / Referrals /Forms Prescriptions: Continue [id number] [Excedrin Extra Strength] 250-250-65 mg Tablet 2 tab PO Q4-6H PRN (Reason: Pain) diclofenac sodium 1 % Gel 2 g TOPICAL QID PRN (Reason: Pain) duloxetine 60 mg Capsule,Delayed Release(Dr/Ec) 120 mg PO DAILY fish,bora,flax oils-om3,6,9no1 [Triple [place] 3-6-9] 400-400-400 mg Capsule 1 cap PO DAILY folic acid 1 mg Tablet 1 mg PO DAILY gabapentin 400 mg Capsule 400 mg PO TID inulin-sorbitol [Fiber Supplement (inulin)] 2 gram Tablet,Chewable 1 tab PO DAILY lisinopril-hydrochlorothiazide 20-25 mg Tablet 1 tab PO DAILY metformin 500 mg Tablet 500 mg PO BID methotrexate sodium 2.5 mg Tablet 6 tab PO DAILY niacin 500 mg Tablet 500 mg PO DAILY oxycodone 15 mg Tablet 15 mg PO Q8HR PRN (Reason: Pain) potassium 99 mg Tablet 99 mg PO DAILY prazosin 2 mg Capsule 2 mg PO HS testosterone 10 mg/0.5 gram /actuation Gel In Metered-Dose Pump 40 mg TRANSDERMAL QAM trazodone 100 mg Tablet 300 mg PO DAILY vitamin B comp and C no.3 [B Complex Plus Vitamin C] 87-04-56-5-300 mg Capsule 1 cap PO DAILY vitamin E 400 unit Capsule 400 unit PO DAILY Discontinued meloxicam 7.5 mg Tablet 7.5 mg PO DAILY Ambulatory Orders / Order Sets / DME: Adjustable Commode 3-in-1 (1 each) (Routine) Location: Determined by Patient Ordered By: Robyn Coyle With Front Wheels (1 each) (Routine) Location: Determined by Patient Ordered By: Geeta Cortez Referrals: Tung Stahl MD [Primary Care Provider] - See Instructions - Discharge Instructions Patient Printed Instructions: Laminectomy (DC), Lumbar Spinal Fusion (DC)
== END 2018-01-03 17:02 | disposition home health service (06) ==
LOC: HSDI 10:03 → N03 12-30 01:01 → N05 12-30 14:22
PROVIDERS: ADMIT Neurological Surgery; ATTEND Neurological Surgery